=== PATIENT | male | born 1965 | race Caucasian/White ===

== ENCOUNTER 2016-05-21 10:24 | Inpatient (IN) | payer OTHER ==
[2016-05-21 11:13] LABS: BASO% 0.1 % (0.0-0.8); HEMOGLOBIN 14.2 g/dL (14.0-18.0); IMM GRAN# 0.39 X1000 (0.0-0.04); IMM GRAN% 2.3 % (0.0-0.5); LYMPH# 0.63 X1000 (1.2-3.4); LYMPH% 3.7 % (20.5-51.1); MANUAL DIFF NEEDED? NO; MCH 33.3 PG (27-31); MCHC 35.5 g/dL (33-37); MCV 93.7 FL (81-99); MONO% 6.5 % (1.7-9.3); MPV 11.4 FL (7.4-10.4); NEUT% 87.4 % (42.2-75.2); PLT 187 X1000 (130-400); RBC 4.27 XMIL (4.7-6.1)
[2016-05-21] MEDS ORDERED: NS 2,000 ML ONE (11:19)
[2016-05-21] MEDS ORDERED: DILAUDID IV ONE (11:28)
[2016-05-21] MEDS ORDERED: ZOFRAN IV ONE (11:28)
--- NOTE | 2016-05-21 11:28 | ED EKG INTERP ---
EKG Interpretation - EKG Time of EKG reading by physician:: 10:42 EKG Read and Signed by:: Valentin Montes EKG Interpretation (*Must complete 3 of following elements*): Abnormal Rate: 144 (ST and T wave abnormality, consider lateral ischemia) Rhythm: sinus tachycardia <Majo Gross - Last Filed: 05/21/16 11:24> - EKG Comments: Additional note: talked to Dr Conrad hospitalist. Elevated creatinine <Kendra Lubin - Last Filed: 05/21/16 13:35> Attestation - Scribe Verification/Attestation Scribe:: Majo Gross Acting as Scribe for:: Valentin Montes Scribe documention review:: This chart was documented by a scribe and accurately reflects the service the provider performed and the decisions made by the provider. <Majo Gross - Last Filed: 05/21/16 11:24> Physician Attestation
[2016-05-21 11:29] LABS: ALBUMIN 3.3 g/dL (3.5-5.0); POTASSIUM 3.2 mmol/L (3.5-5.1); TOTAL BILIRUBIN 2.24 mg/dL (0.20-1.00); TOTAL PROTEIN 6.8 g/dL (6.3-8.3)
[2016-05-21] MEDS ORDERED: NS 1,000 ML IV ONE ×4 (11:29→13:59)
--- NOTE | 2016-05-21 12:09 | PROVIDER DOCUMENTATION ---
HPI-Abdominal Pain/GI Problem - General Chief Complaint: Abdominal Pain Stated Complaint: SENT FOR FURTHER EVAL Time Seen by Provider: 05/21/16 11:17 Allergies/Adverse Reactions: Patient Allergies Allergy/AdvReac Type Severity Reaction Status Date / Time No Known Allergies Allergy Verified 05/21/16 10:58 Home Medications: Home Medication List Medication Instructions Recorded Confirmed Last Taken Type Aspirin 81 mg PO DAILY 01/27/13 05/21/16 3 Days Ago History Clonazepam 1 mg PO BID 01/27/13 05/21/16 05/21/16 History Fenofibrate 160 mg PO DAILY 01/27/13 05/21/16 05/21/16 History Levothyroxine [Synthroid] 100 mcg PO DAILY 01/27/13 05/21/16 05/21/16 History Losartan Potassium 100 mg PO DAILY 01/27/13 05/21/16 1 Day Ago History Olanzapine [Olanzapine Odt] 10 mg PO QHS 01/27/13 05/21/16 1 Day Ago History Omeprazole 40 mg PO DAILY 01/27/13 05/21/16 1 Day Ago History Ranitidine HCl 75 mg PO DAILY 01/27/13 05/21/16 1 Day Ago History Simvastatin 40 mg PO QHS 01/27/13 05/21/16 3 Days Ago History Hydrochlorothiazide 25 mg PO DAILY 05/21/16 05/21/16 05/21/16 History Metoprolol Succinate E.r. [Toprol 25 mg PO DAILY 05/21/16 05/21/16 05/21/16 History Xl] Trospium [Sanctura] 20 mg PO BID 05/21/16 05/21/16 05/21/16 History - History of Present Illness-ABD Nature of Presenting Problems: A 51 y/o M presented for evaluation of right sided abdominal pain started few days ago, was seen at office and US showed possible slugde in gall bladder, his pain is getting worse associated with nausea, pt is poor historian, no radiation of pain no prior surgeris on abdomen, on presentation pt in mild distress due to pain Abdominal Pain Onset Location: reports: RUQ, RLQ, epigastric Pain Radiation: reports: no radiation Quality of Pain: reports: aching, pressure Severity in ED: reports: moderate Onset/Duration: reports: unsure Timing: reports: still present Activities at Onset: reports: none Exposure to sick contacts?: No Modifying Factors: improves with: nothing Associated Symptoms: reports: nausea Last BM: unsure Dark Stools Present?: reports: none noticed Rectal Bleeding: reports: none Rectal Pain: reports: none Emesis Description: reports: none Bruising or Bleeding Gums?: No Similar Symptoms Previously?: Yes Recently seen or treated by another doctor?: Yes Review of Systems - Adult - REVIEW OF SYSTEMS - ADULT Constitutional: reports: no symptoms reported Eyes: reports: no symptoms reported Ears, Nose, Mouth & Throat: reports: no symptoms reported Cardiovascular: reports: no symptoms reported Respiratory: reports: no symptoms reported Gastrointestinal: reports: no symptoms reported Genitourinary: reports: no symptoms reported Musculoskeletal: reports: no symptoms reported Integumentary: reports: no symptoms reported Neurological: reports: no symptoms reported Psychiatric: reports: no symptoms reported Endocrine: reports: no symptoms reported Hematologic/Lymphatic: reports: no symptoms reported Allergic/Immunologic: reports: no symptoms reported All Other Systems: Reviewed and Negative Past History - Adult - PAST MEDICAL HISTORY-ADULT Review of Records: reports: Old Records Reviewed, Nursing Assessment Review, Medications Reviewed, Social history reviewed & non-contributory. Major Childhood Illnesses: reports: denies history Cardiovascular: reports: denies history Respiratory: reports: denies history Gastrointestinal: reports: denies history Obstetrical/Gynecological: reports: denies history Genitourinary: reports: denies history Musculoskeletal: reports: denies history Neurological: reports: denies history Endocrine/Immune: reports: denies history Other Conditions: reports: denies history - FAMILY HISTORY Family History: reviewed, not pertinent Physical Exam-General - PHYSICAL EXAM-ADULT Initial Vital Signs Reviewed: Yes - CONSTITUTIONAL General Appearance: appears well, mild distress - EYES Eyes: PERRL/EOMI, pink conjunctivae - HEAD, EARS, NOSE, MOUTH & THROAT HENMT: normocephalic/atraumatic, moist mucous membranes - NECK Neck: non-tender, full range of motion - RESPIRATORY Respiratory: chest non-tender, lungs clear, normal breath sounds - CARDIOVASCULAR Cardiovascular: normal peripheral pulses, tachycardia - GASTROINTESTINAL (ABDOMEN) Abdominal Exam: normal bowel sounds, no organomegaly, guarding, tenderness, Reyes's sign. 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, grossly normal - PSYCHIATRIC Psych/Mental Status: normal mood/affect, normal thought content Progress - PLAN OF CARE/RESULTS Progress/Plan/Lab Results: Laboratory Tests 05/21/16 05/21/16 10:50 10:50 WBC 16.98 H RBC 4.27 L Hgb 14.2 Hct 40.0 L MCV 93.7 MCH 33.3 H MCHC 35.5 RDW Std Deviation 12.4 Plt Count 187 MPV 11.4 H Immature Gran % (Auto) 2.3 H Neut % (Auto) 87.4 H Lymph % (Auto) 3.7 L [place] % (Auto) 6.5 Eos % (Auto) 0.0 Baso % (Auto) 0.1 Immature Gran # (Auto) 0.39 H Neut # (Auto) 14.84 H Lymph # (Auto) 0.63 L [place] # (Auto) 1.10 H Eos # (Auto) 0.00 Baso # (Auto) 0.02 Sodium 137 Potassium 3.2 L Chloride 92 L Carbon Dioxide 18 L Anion Gap 27 BUN 17 Creatinine 2.5 H Estimated GFR/1.73 m2 27 BUN/Creatinine Ratio 7 Glucose 133 H Calculated Osmolality 277 Calcium 9.0 Total Bilirubin 2.24 H AST 57 H ALT 23 Alkaline Phosphatase 185 H Total Protein 6.8 Albumin 3.3 L Globulin 3.5 Albumin/Globulin Ratio 0.9 Amylase 22 Lipase 18 Orders Category Date Time Status Saline Loc DIRECTED Care 05/21/16 10:55 Active Saline Loc DIRECTED Care 05/21/16 11:26 Active NPO Diet 05/21/16 10:55 Completed NPO Diet 05/21/16 11:26 Active ABDOMEN/PELVIS W/O CONTRAST [CT] Stat Exams 05/21/16 11:27 Completed AMYLASE [CHEM] Stat Lab 05/21/16 10:50 Completed BLOOD CULTURE [BLDCUL] Stat Lab 05/21/16 11:43 Received CBC WITH ELECTRONIC DIFF [HEME] Stat Lab 05/21/16 10:50 Completed COMPREHENSIVE METABOLIC PANEL [CHEM] Stat Lab 05/21/16 10:50 Completed LACTATE, PLASMA [CHEM] Stat Lab 05/21/16 11:29 Ordered LIPASE [CHEM] Stat Lab 05/21/16 10:50 Completed URINALYSIS W/POSS RFLX CULT [URINALYSIS] Stat Lab 05/21/16 10:55 Uncollected URINALYSIS W/POSS RFLX CULT [URINALYSIS] Stat Lab 05/21/16 11:26 Uncollected 0.9% Sodium Chloride Inj [Ns] 1,000 ml Med 05/21/16 11:19 Discontinued .ROUTE As Directed 0.9% Sodium Chloride Inj [Ns] 1,000 ml Med 05/21/16 11:29 Discontinued IV 999 mls/hr 0.9% Sodium Chloride Inj [Ns] 1,000 ml Med 05/21/16 11:30 Discontinued IV 999 mls/hr Hydromorphone [Dilaudid] Med 05/21/16 11:28 Discontinued 1 mg IV NOW ONE Ondansetron [Zofran] Med 05/21/16 11:28 Discontinued 4 mg IV NOW ONE Piperacil/Tazobact 3.375 gm/Ns [Zosyn 3.375 gm/Ns] 50 Med 05/21/16 13:16 Active ml IV NOW Vancomycin 1 gm/Ns 250 ml Med 05/21/16 13:19 Active IV NOW Vital Signs Temp Pulse Resp BP Pulse Ox 05/21/16 12:46 99.8 F H 05/21/16 12:41 126 H 31 H 97/57 90 L 05/21/16 12:11 125 H 16 96/63 94 L 05/21/16 11:31 135 H 24 96/64 95 05/21/16 11:11 135 H 24 102/54 95 05/21/16 10:30 99.2 F 153 H 22 153/128 95 No Known Allergies Allergy (Verified 05/21/16 10:58) Aspirin 81 mg PO DAILY 01/27/13 Clonazepam 1 mg PO BID 01/27/13 Fenofibrate 160 mg PO DAILY 01/27/13 Levothyroxine [Synthroid] 100 mcg PO DAILY 01/27/13 Losartan Potassium 100 mg PO DAILY 01/27/13 Olanzapine [Olanzapine Odt] 10 mg PO QHS 01/27/13 Omeprazole 40 mg PO DAILY 01/27/13 Ranitidine HCl 75 mg PO DAILY 01/27/13 Simvastatin 40 mg PO QHS 01/27/13 Hydrochlorothiazide 25 mg PO DAILY 05/21/16 Metoprolol Succinate E.r. [Toprol Xl] 25 mg PO DAILY 05/21/16 Trospium [Sanctura] 20 mg PO BID 05/21/16 Dietary Diet NPO Start Sat May 21 1126 Laboratory 05/21/16 05/21/16 10:50 10:50 WBC 16.98 H RBC 4.27 L Hgb 14.2 Hct 40.0 L MCV 93.7 MCH 33.3 H MCHC 35.5 RDW Std Deviation 12.4 Plt Count 187 MPV 11.4 H Immature Gran % (Auto) 2.3 H Neut % (Auto) 87.4 H Lymph % (Auto) 3.7 L [place] % (Auto) 6.5 Eos % (Auto) 0.0 Baso % (Auto) 0.1 Immature Gran # (Auto) 0.39 H Neut # (Auto) 14.84 H Lymph # (Auto) 0.63 L [place] # (Auto) 1.10 H Eos # (Auto) 0.00 Baso # (Auto) 0.02 Sodium 137 Potassium 3.2 L Chloride 92 L Carbon Dioxide 18 L Anion Gap 27 BUN 17 Creatinine 2.5 H Estimated GFR/1.73 m2 27 BUN/Creatinine Ratio 7 Glucose 133 H Calculated Osmolality 277 Calcium 9.0 Total Bilirubin 2.24 H AST 57 H ALT 23 Alkaline Phosphatase 185 H Total Protein 6.8 Albumin 3.3 L Globulin 3.5 Albumin/Globulin Ratio 0.9 Amylase 22 Lipase 18 - REASSESSMENT Reassessment #1 Status: unchanged - EKG 1 EKG Interpretation (*Must complete 3 of following elements*): Abnormal (sinus tachycardia no acute changes no STEMI) - CT/MRI 2 CT Study: Abdomen Impression: See EMR Report CT Results: cholecsytitis no gall stone sbut fluid around gall bladder duodenitis - CONSULTS/PCP/HOSPITALIST Notification #2 Consult: Dr Chawla surgery Time Discussed: 13:27 Consult Disposition: Admit Departure - Departure Time of Disposition Order: 13:27 DIAGNOSIS: Cholecystitis Abdominal pain Qualifiers: Abdominal location: right lower quadrant Qualified Code(s): R10.31 - Right lower quadrant pain Sepsis Qualifiers: Sepsis type: sepsis due to unspecified organism Qualified Code(s): A41.9 - Sepsis, unspecified organism Disposition: ADMITTED INPATIENT 09 Certified Medical Emergency: Emergent Condition: Stable - Critical Care Note Comments: A 51 y/o M who presented meeting sepsis criteria started on IV fluids at 30 ml/ kg had elevated WBC and CT scan findings as above, started on ABX after surgical consultation, pt will be admitted to hospitalist service
--- NOTE | 2016-05-21 13:02 | Diag Imaging Result Document ---
PROCEDURE NAME: ABDOMEN/PELVIS W/O CONTRAST - 05/21/2016 CT UROGRAM WITHOUT CONTRAST: FINDINGS: There is bibasilar atelectasis. The possibility of pneumonia in the right lower lobe cannot be entirely excluded. The stomach is distended. There is inflammatory change surrounding the second portion of the duodenum. The pancreas is fairly fatty replaced. There is inflammation surrounding the gallbladder. No definite calcified stones are present. There is no evidence of nephrolithiasis or hydronephrosis. The appendix is normal in appearance. There is diverticulosis in the sigmoid colon. There is a small fluid collection subadjacent to the gallbladder. There is a diverticulum arising from the second portion of the duodenum. IMPRESSION: 1. Basilar atelectasis. 2. Possibility of duodenitis or peptic ulcer disease cannot be excluded. 3. Cholecystitis.
[2016-05-21] MEDS ORDERED: ZOSYN 3.375 GM/NS 50 ML IV ONE (13:16)
[2016-05-21] MEDS ORDERED: VANCOMYCIN 1 GM/NS 250 ML IV ONE (13:19)
[2016-05-21 13:29] LABS: URINE CULTURE NEEDED? NO; URINE SOURCE CATH
[2016-05-21 13:36] LABS: BILIRUBIN URINE SMALL (NEGATIVE); BLOOD URINE NEGATIVE (NEGATIVE); COLOR YELLOW; GLUCOSE URINE NEGATIVE (NEGATIVE); LEUKOCYTES URINE NEGATIVE (NEGATIVE); NITRITE URINE NEGATIVE (NEGATIVE); PROTEIN URINE 70 mg/dL (NEGATIVE); SP GRAVITY URINE 1.019; TURBIDITY URINE HAZY (CLEAR); UROBILINOGEN URINE NORMAL (NORMAL)
[2016-05-21 13:39] LABS: URINE MICRO REVIEW NEEDED? YES
[2016-05-21 13:40] LABS: UR EPITHELIAL CELLS <10 /HPF (<10); URINE BACTERIA NEGATIVE /HPF; URINE RBC <10 /HPF (<10); URINE WBC <10 /HPF (<10)
[2016-05-21 13:49] LABS: URINE CASTS NONE SEEN; URINE CRYSTALS NONE SEEN; URINE SMALL ROUND CELLS NONE SEEN
[2016-05-21] MEDS ORDERED: LEVOPHED 8 MG in D5 1/2 NS 250 ML IV SCH (14:00)
[2016-05-21] MEDS ORDERED: PROTONIX 80 MG in NS 80 ML IV ONE (14:09)
[2016-05-21] MEDS ORDERED: POTASSIUM CHLORIDE 40 MEQ/SWI 100 ML IV ONE (14:13)
[2016-05-21] MEDS ORDERED: ZOSYN 2.25 GM/NS 50 ML IV SCH (14:15)
--- NOTE | 2016-05-21 14:39 | CONSULTATION ---
DATE OF CONSULTATION: 05/21/2016 REQUESTING PHYSICIAN: Dr. Oneill on the hospitalist service. CONSULT CONCERNING: Abdominal pain. HISTORY OF PRESENT ILLNESS: A 51-year-old male presenting with right-sided and right flank abdominal pain starting several days prior to presentation. He had been seen in his primary care physician's office and had an ultrasound that showed possible sludge in the gallbladder. His pain had continued to get worse and came to emergency department. The patient is a poor historian. Cannot give much more details. Right now said he is not hurting as much but when the pain was happening on the right side he described as moderate in intensity and been increasing over last couple days. Nothing seemed to make it better. Nothing seemed to made it worse. He did not seem to notice a precipitating event prior to the presentation of this pain. He was evaluated in emergency department, had a CT scan that showed a duodenitis, some fluid around the duodenum and some fluid around the gallbladder. There is a concern that this might be a contained perforation of a duodenal ulcer. His blood pressure has been labile, it is currently in the 80s. His heart rates in the 120s. He is presenting in a septic like picture. He is being resuscitated currently by the hospitalist service and will be admitted to the ICU. I was asked to weigh an opinion. Again the patient right now is not reporting any abdominal pain. PAST MEDICAL HISTORY: Includes hyperlipidemia, hypothyroidism, hypertension, peptic ulcer disease, reported schizophrenia. ALLERGIES: None. PAST SURGICAL HISTORY: The patient denies any kind of abdominal surgery. SOCIAL: Reviewed with the patient. No pertinent positives. FAMILY HISTORY: Reviewed with patient but noncontributory to this case. REVIEW OF SYSTEMS: A full 10 point review of systems obtained, negative as specified in HPI. PHYSICAL EXAM: Vital Signs: The patient is currently tachycardic in the 120s, blood pressure is 84/59, O2 saturations in the 90s, respiratory rate in the high 20s. General Exam: male looks stated age. Appears to be mild to moderate distress. HEENT: Normocephalic, atraumatic. Pupils equal, round, reactive to light. Mucous membranes moist. Oropharynx benign. Neck: Supple. Trachea midline. Cardiovascular: Regular rate and rhythm but with tachycardia noted. Lungs: Grossly clear. Abdomen: Soft, distended. No peritonitis at this time. No tenderness on exam at this time. He did have an exam by the ER physician. It did show some tenderness in the right upper quadrant but at this time he is not currently tender. Extremities: Moves all extremities well. Neurologic: Grossly intact. Skin: No signs of jaundice. Vascular: All extremities perfused. LABORATORY: White blood cell count 16.9, hematocrit 40, platelet count 187,000. Chemistry reviewed. Of note, patient's creatinine is 2.5, bilirubin is 2.2, AST 57, ALT 185, albumin 3.3, lipase 18. CT scan independently reviewed and reviewed over the phone with Dr. Townsend with radiology and results as noted above. ASSESSMENT AND PLAN: A 51-year-old male with sepsis with potential for contained perforation of duodenal ulcer. 1. Sepsis at this time being resuscitated by the hospitalist service. He is undergoing the sepsis workup. He has been started on antibiotics. He is going to be admitted to the ICU for continued resuscitation. Will follow along with him. 2. Possible duodenal contained perforation or ulcer. At this time the patient is septic. Given the radiographic imaging this is a high concern. I believe that his gallbladder may be reacting secondary to the whole inflammatory process and may not be the culprit of the problem for his septic like picture especially given his lack of abdominal pain. He is going to be started on antibiotics. Will also ask the hospitalist service to put him on proton pump inhibitor drip. I have discussed over the phone with Dr. Santana in gastroenterology. Once he is resuscitated may consider an EGD to evaluate further. Will continue to follow along with you. I appreciate the consult.
[2016-05-21] MEDS: POTASSIUM CHLORIDE 20 MEQ/SWI 100 ML IV SCH ×2 (14:44→17:01)
[2016-05-21] MEDS: PROTONIX 80 MG in NS 80 ML IV SCH (15:34)
[2016-05-21] MEDS ORDERED: SODIUM CHLORIDE 0.9% INJ PRN (15:51)
[2016-05-21] MEDS: NS 1,000 ML IV SCH (17:09)
--- NOTE | 2016-05-21 18:32 | HISTORY AND PHYSICAL ---
CHIEF COMPLAINT: Abdominal pain. HISTORY OF PRESENT ILLNESS: This is a 51-year-old male who presented to the emergency room complaining of several days of right-sided right flank abdominal pain. He was seen by his primary care physician earlier in the week. An ultrasound was done that the patient reports revealed possible sludge in the gallbladder. He stated that his pain has continued to worsen, therefore he presented to the emergency room. He is a poor historian and he can give no further details of what are mentioned above. He stated that the pain on his right side he could not describe the pain. He just stated that it hurt. Nothing made it better. Nothing made it worse. He had no accompanying symptoms. He had a CT scan in the emergency room that showed duodenitis with some fluid around the duodenum as well as around the gallbladder. On presentation he had blood pressure of 153/128 with a heart rate of 153, temperature was 99.2 degrees. Pressure slowly began to drop and on my evaluation patient's blood pressure was 80/54, he was on a 2nd L of fluid. He was in Trendelenburg. He was alert and oriented. He does appear septic and he is being resuscitated currently. He was evaluated by Dr. Chawla, General Surgery in the emergency room. At that time the patient had a nontender abdomen and was denying any abdominal pain. PAST MEDICAL HISTORY: Hyperlipidemia, hypothyroid, hypertension, peptic ulcer disease and reported schizophrenia. ALLERGIES: No known drug allergies. PAST SURGICAL HISTORY: He denies. HOME MEDICATIONS: Klonopin, Sanctura, Toprol-XL, hydrochlorothiazide, Synthroid, fenofibrate, aspirin, losartan, olanzapine, simvastatin, ranitidine and omeprazole. REVIEW OF SYSTEMS: A 14-point review of systems is discussed with patient with pertinent positives stated in the HPI. All others are negative. PHYSICAL EXAMINATION: GENERAL: This is a 51-year-old male who is in the emergency room is currently in Trendelenburg with a blood pressure of 80 over 50s, heart rate in the 120s to 130s who actually denies being in any distress. HEENT: Head is normocephalic, atraumatic. Pupils equal, round, react to light. EOMs are intact. Sclerae nonicteric. Mucous membranes are moist. NECK: Supple. Trachea midline. CARDIOVASCULAR: Regular rate and rhythm. Tachycardic, S1 and S2 are appreciated. PULMONARY: Lungs are clear with no increased work of breathing. Chest rises and falls symmetrically. GASTROINTESTINAL: Abdomen soft, is distended, nontender to exam with bowel sounds in all 4 quadrants. : [place] is patent with urine that is clear yellow. EXTREMITIES: No clubbing, cyanosis, or edema. Calves are nontender. Pulses are palpable although faint. DIAGNOSTICS: WBC is 16.9 with a hemoglobin of 14.2, hematocrit 40 and platelets of 187,000. Sodium is 137, potassium 3.2, BUN 17, creatinine 2.5 with a glucose of 133. Total bilirubin is 2.24 with AST of 57, ALT of 23 and alkaline phosphatase of 185. He does have a plasma lactate of 4.4 and this is after fluid resuscitation. Urinalysis is pending. Blood cultures are pending. CT scan of the abdomen and pelvis as stated above. ASSESSMENT AND PLAN: A 51-year-old male with sepsis and the potential for a contained perforated duodenal ulcer. PLAN: 1. Sepsis. The patient is being resuscitated at present. Levophed has been started. Antibiotic coverage of Zosyn as per GI and general surgery. Will admit to ICU. Continue with sepsis protocol. He will be placed on telemetry. 2. Hypotension as stated above. 3. Possible duodenal contained perforation or ulcer. At this time the patient is septic. He has been evaluated by general surgery who feels that the gallbladder may not be the culprit that this in fact may be secondary to the inflammatory process. He did speak to Dr. Santana, gastroenterology who feels that there is potential for perforation of a duodenal ulcer. Therefore the patient of course will be NPO. Will give Protonix bolus, start a Protonix drip, Zosyn for antibiotic coverage. He will be evaluated by Dr. Santana. 4. History of peptic ulcer disease aware. 5. Hypothyroid. 6. Schizophrenia aware. 7. Will identify and continue any home medications as appropriate via IV. Of course we will give Synthroid IV daily. Will trend daily labs. Further treatments pending hospital course. Dictated by JUAN Dhaliwal for Seamus Pham MD
[2016-05-21] MEDS: ZOSYN 2.25 GM/NS 50 ML IV SCH (19:35)
[2016-05-21] MEDS: TYLENOL PO PRN (21:32)
[2016-05-21] MEDS: ZYPREXA ZYDIS PO SCH (21:32)
[2016-05-21] MEDS: KLONOPIN PO SCH (21:33)
[2016-05-21] MEDS: MORPHINE IV PRN (22:59)
[2016-05-22] MEDS: PROTONIX 80 MG in NS 80 ML IV SCH ×3 (00:30→16:23)
[2016-05-22] MEDS: NS 1,000 ML IV SCH ×3 (01:30→16:22)
[2016-05-22] MEDS: ZOSYN 2.25 GM/NS 50 ML IV SCH ×4 (02:29→20:41)
[2016-05-22 06:24] LABS: HEMATOCRIT 32.4 % (42.0-52.0); HEMOGLOBIN 11.2 g/dL (14.0-18.0); MCH 33.1 PG (27-31); MCHC 34.6 g/dL (33-37); MCV 95.9 FL (81-99); MPV 11.9 FL (7.4-10.4); RBC 3.38 XMIL (4.7-6.1)
[2016-05-22 06:44] LABS: ALBUMIN 2.3 g/dL (3.5-5.0); MAGNESIUM 2.3 mg/dL (1.5-2.7); POTASSIUM 3.4 mmol/L (3.5-5.1); TOTAL BILIRUBIN 1.55 mg/dL (0.20-1.00); TOTAL PROTEIN 5.6 g/dL (6.3-8.3)
[2016-05-22] MEDS: SYNTHROID IV SCH (06:44)
--- NOTE | 2016-05-22 06:49 | PROGRESS NOTE ---
DATE: 05/22/2016 SUBJECTIVE: Patient reports no real significant pain. He had some episodes earlier, but no pain currently. Discussed with the nurse. No major issues reported overnight his vital signs have improved since admission. OBJECTIVE: Vital Signs: Patient's current temperature is 100.9, temperature max was 101.5. Current heart rate is 120, blood pressure 111/75. His Levophed is currently off. General Examination: No acute distress. Alert, interactive, male. Looks stated age. HEENT: Normocephalic atraumatic. Pupils are round, react to light. Mucous membranes moist. Oropharynx benign. Neck: Supple. Trachea midline. Cardiovascular: Mildly tachycardic. Lungs: Grossly clear. Abdomen: Protuberant, but soft. No real tenderness at this time. Extremities: Moves all extremities. Neurologic: Grossly intact. Skin: No signs of jaundice. Vascular: All extremities perfused. LABORATORY: Currently pending. ASSESSMENT AND PLAN: A 51-year-old male with duodenitis and possible cholecystitis with septic like picture. 1. Sepsis. At this time being managed by the hospitalist service. He is on broad-spectrum antibiotics. He did have a slightly elevated lactic acid, initially at 4.4, but has gone down to 3.8, his overall clinical status has seemed to improve with resuscitation. 2. Possible duodenal contained perforation or ulcer. At this time, patient essentially has a benign abdomen. Would likely need an esophagogastroduodenoscopy done to evaluate this area, once he is more stable. We will defer that to GI. Will continue to follow the patient with you.
[2016-05-22 07:29] LABS: CALCIUM 7.6 mg/dL (8.8-10.2)
--- NOTE | 2016-05-22 07:57 | CONSULTATION ---
DATE OF CONSULTATION: 05/21/2016 ADMITTING PHYSICIAN: Dr. Oneill. PRIMARY PHYSICIAN: Dr. Josh Geiger. REASON FOR CONSULTATION: Sepsis, and questionable peptic ulcer disease. HISTORY OF PRESENT ILLNESS: Mr. Naylor is a 51-year-old male, who was admitted today with symptoms of right-sided abdominal pain, going on for many weeks before presentation. He had seen his primary care doctor, who advised he take MiraLAX for 2 to 3 days. He took MiraLAX last night, and last night he had about 5 liquid bowel movements. He continued to feel worse with abdominal pain, and had an ultrasound, which showed sludge in the gallbladder at his primary care's office. Because of worsening symptoms over the weekend, he came to the hospital. A CT scan showed evidence of duodenitis, diverticulum in the duodenum, fluid around the duodenum , and some fluid around the gallbladder. There is a concern of a possible contained perforation of duodenal ulcer. The patient is taking aspirin 81 mg a day at home (has not taken it since last ). He takes PPIs at home for reflux disease. He denied any history of peptic ulcer disease. He has had previous EGDs done by Dr. Pulliam for dysphagia and reflux disease. PAST MEDICAL HISTORY: Hypertension, hypothyroidism, peptic ulcer disease reported, schizophrenia, gastric ulcer disease, gallbladder sludge. ALLERGIES: No known drug allergies. PAST SURGICAL HISTORY: Denies any history of abdominal surgery. SOCIAL HISTORY: He lives at home. He is currently disabled. He denies history of smoking, alcohol or illicit drugs. FAMILY HISTORY: No history of any colon cancer in the family or stomach ulcers in the family. Denies any fevers, rigors, chills at this moment, although, the patient did complain of feverish feeling at home. He was noted to be tachycardic, hypertensive, and a sepsis picture in the ER, was given IV fluids and transferred to the ICU. He does complain of coughing spells and some choking spells with food. He denies any genitourinary complaints or neurologic complaints. Denies any vomiting or passing blood in the stools. MEDICATIONS IN THE HOSPITAL: Ativan, norepinephrine drip, Protonix drip, potassium chloride, Zosyn, vancomycin 1 dose, levothyroxine, IV fluids 125 per hour. He is currently NPO. PHYSICAL EXAMINATION: Vital signs: Temperature 97.9, pulse rate of 117, respiratory rate 20, blood pressure of 92/64, sating 93% 2 L nasal cannula. Body weight of 233 pounds 7 ounces. BMI of 32.6 kg/m2. General Appearance: Moderately nourished, lying in bed, in no acute distress. HEENT: No pallor. No icterus. Pupils equal, react to light. Neck: Supple. Chest: Decreased air entry. Cardiac: Tachycardic. Abdomen: Mild discomfort in right upper quadrant. No rebound. No guarding. Bowel sounds are hypoactive. Mildly protuberant abdomen. Mild obesity. Extremities: No cyanosis, clubbing, or edema. Neurologic: Alert, awake, oriented. LABS: Hemoglobin and hematocrit is 14.2 and 40, white count of 16.98, platelet count of 187,000. MCV of 93.7. Sodium 137, potassium 3.2, chloride 92, bicarb 18, anion gap of 27 , BUN of 17, creatinine of 2.5, glucose of 133, calcium is 9, total bilirubin is 2.24. AST 57, ALT 23, alkaline phosphatase 185. Total protein 6.0, albumin of 3.3, amylase of 22, lipase of 18, lactate of 4.4. Urinalysis showing positive protein, trace ketones, small bilirubin. CT scan of the abdomen and pelvis, done on 05/21/2016, showed some bilateral atelectasis, possibly duodenitis or peptic ulcer disease cannot be excluded or cholecystitis. IMPRESSION AND PLAN: Cholecystitis, and possibility of duodenitis and ? contained duodenal ulcer/diverticulum. There is also evidence of diverticulum arising from second duodenum on the imaging. The patient is being treated with IV fluids, IV PPIs, IV antibiotics and he is NPO Dr. Chawla is on board. Patient's liver enzymes slightly high, consistent with a diagnosis of cholecystitis, sepsis or both. Once he is resuscitated, we will plan for an EGD. He does not have any signs of active GI bleeding, and he has been on PPIs and limited NSAIDs. Discussed with the patient, RN at bedside. All questions were answered. Further recommendations are pending hospital course. [facility]
[2016-05-22] MEDS ORDERED: POTASSIUM PHOSPHATE 30 MEQ in NS 250 ML IV ONE (08:10)
[2016-05-22] MEDS: KLONOPIN PO SCH ×2 (08:18→20:47)
--- NOTE | 2016-05-22 10:47 | PROGRESS NOTE ---
DATE: 05/22/2016 SUBJECTIVE: When I evaluated this patient he was sitting on the bed. He is not complaining of belly pain, just mild discomfort upon palpation. He is still distended. He was admitted yesterday for sepsis and he has been without pressors since 2 a.m. For now, we will continue with the same management. This patient has had today hypokalemia and hypophosphatemia. I will replace this with potassium phosphate. OBJECTIVE: Vital Signs: Temperature 97.8 degrees, pulse 106, respiratory rate 23, blood pressure 125/86, oxygen saturation 94% on 4 L of nasal cannula. HEENT: Head normocephalic. No trauma. PERRLA. Neck: Supple. No JVD. No masses. Central trachea. Cardiovascular: RRR. No murmurs. Chest: Clear to auscultation. No wheezing. No rales. Abdomen: Soft. It is distended. Mild generalized tenderness to palpation in all 4 quadrants. No rebound. Extremities: No edema. No clubbing. No cyanosis. Neurological: The patient is alert. He is oriented x3. No focal neurological deficits. LABORATORY: WBC 14.6, hemoglobin 11.2, hematocrit. 32.4, platelets 124,000. Sodium 140, potassium 3.4, chloride 104, bicarbonate 19, BUN 20, creatinine 1.6, glucose 136, calcium 7.6, phosphorus 0.8, magnesium 2.3. Total bilirubin 1.5, AST 48, ALT 19, alkaline phosphatase 105, albumin 2.3. ASSESSMENT AND PLAN: 1. Sepsis. At this point probably the source of any source of infection is coming from the abdomen. Surgery department and gastroenterology department are following this patient. Probably this patient will need an upper endoscopy to rule out a perforation and/or ulcer. This patient is getting better. The blood pressure has been stable. He has been without pressors since 2 a.m. today. We will continue with the same management and IV fluids. 2. Hypotension. As above. The blood pressure has been stable. 3. Possible duodenal contained perforation or ulcer. At this time the patient's blood pressure is stable. Gastroenterology department is following this patient. Probably this patient will need an upper endoscopy to rule out these conditions. We will wait for their recommendations. 4. Acute kidney injury. This is getting better. The creatinine decreased from. 2.5 to 1.6. I do not have previous records or hospitalization to compare. We will continue with the same management. 5. Hypokalemia. I will replace the potassium. 6. Hypophosphatemia. I will replace the phosphorus. He will get potassium phosphate. 7. History of peptic ulcer disease. Aware. 8. Hypothyroidism. Continue with the same management. He is on Synthroid. 9. Schizophrenia. Aware. CRITICAL CARE TIME: 35 minutes.
[2016-05-22] MEDS: TYLENOL PO PRN (14:29)
[2016-05-22] MEDS: LEVAQUIN 500 MG/D5W 100 ML IV SCH (18:02)
--- NOTE | 2016-05-22 19:53 | PROGRESS NOTE ---
DATE: 05/22/2016 SUBJECTIVE: Patient currently resting in bed. He complaints of abdominal pain in the right upper quadrant. His abdomen is feeling distended today.Vitals: Temperature of 99.5 degrees, pulse rate of 108, respiratory rate 26, blood pressure 152/89, saturating 92% on 4 L nasal cannula. General Appearance: Obese, lying in bed, in mild distress because of abdominal discomfort. HEENT: Pale conjunctivae. No icterus. Neck: Supple. Abdomen: Mild distention noted. Discomfort in the right upper quadrant. Bowel sounds are hypoactive. No guarding. Extremities: No cyanosis, clubbing. Neurologic: Alert, awake, and oriented. LABORATORY/DIAGNOSTICS: Hemoglobin and hematocrit 11.2, 32.4, white count of 14.67, platelet count of 124,000. Sodium 140, potassium 3.4, chloride 104, bicarb 99, anion gap 17, BUN of 20, creatinine 1.6, glucose of 136, calcium is 7.6, phosphorus 0.8, bilirubin is 1.55. AST 48, ALT 19, alkaline phosphatase was 105, total protein 5.6, albumin of 2.3, lactate of 3.8, lipase of 44. Urinalysis showing trace protein, trace ketones, and small bilirubin. IMPRESSION/PLAN: 1. Abdominal distention, abdominal pain, sepsis and gram-negative rods. Currently continuing IV antibiotics, IV fluids. We will double cover with antibiotics and add Levaquin as well and continue on Zosyn. 2. We will schedule for esophagogastroduodenoscopy tomorrow morning if the patient is hemodynamically stable. 3. Cholecystitis. Dr. Chawla is on board. We will continue to watch the liver enzymes. 4. He has continued to be nothing per oral per the primary team for now. 5. The risks, benefits, indications and alternatives of esophagogastroduodenoscopy were explained to the patient and all questions were answered.
[2016-05-22] MEDS: ZYPREXA ZYDIS PO SCH (20:47)
[2016-05-23] MEDS: ZOSYN 2.25 GM/NS 50 ML IV SCH ×4 (02:05→20:57)
[2016-05-23] MEDS: PROTONIX 80 MG in NS 80 ML IV SCH ×3 (02:06→21:56)
[2016-05-23] MEDS: NS 1,000 ML IV SCH ×3 (02:06→12:36)
[2016-05-23 06:04] LABS: MANUAL DIFF NEEDED? NO
[2016-05-23 06:29] LABS: BASO% 0.1 % (0.0-0.8); EOS# 0.09 X1000 (0.0-0.7); EOS% 0.7 % (0.0-10.0); HEMOGLOBIN 11.5 g/dL (14.0-18.0); IMM GRAN# 0.14 X1000 (0.0-0.04); IMM GRAN% 1.1 % (0.0-0.5); LYMPH# 1.13 X1000 (1.2-3.4); LYMPH% 9.1 % (20.5-51.1); MCH 33.6 PG (27-31); MCHC 35.9 g/dL (33-37); MCV 93.6 FL (81-99); MONO# 1.14 X1000 (0.11-0.59); MONO% 9.2 % (1.7-9.3); MPV 11.4 FL (7.4-10.4); NEUT% 79.8 % (42.2-75.2); PLT 159 X1000 (130-400); RBC 3.42 XMIL (4.7-6.1)
[2016-05-23] MEDS: SYNTHROID IV SCH (06:32)
--- NOTE | 2016-05-23 06:39 | PROGRESS NOTE ---
DATE: 05/23/2016 SUBJECTIVE: Patient had more increased distention yesterday. Had a KUB that showed what appeared to be a gastric outlet obstruction. He had an NG tube placed that has returned bile. The patient is resting comfortably right now. He is currently not on any pressors. OBJECTIVE: Vital Signs: The patient's current temperature is 99.3, his pulse is 101, blood pressure 150/100, O2 saturation 96%. General Examination: Resting comfortably. No acute distress. HEENT: Normocephalic and atraumatic. Pupils equal, round, and react to light. Mucous membranes moist. Oropharynx benign. NG tube in place with bilious output. Trachea midline. Cardiovascular: Mildly tachycardic. Lungs: Grossly clear. Abdomen: Softer and less distended than yesterday but still distended. Extremities: Moves all extremities. Neurologic: Grossly intact. Skin: No signs of jaundice. Vascular: All extremities perfused. Laboratory: Currently pending. Radiographs: Imaging reviewed. His post NG tube placement x-ray looks improved compared to his KUB from last night as far as gastric distention is concerned. ASSESSMENT AND PLAN: A 51-year-old, male with duodenitis and possible duodenal obstruction, and possible cholecystitis with a septic like picture. 1. Sepsis. At this time, being managed by the hospitalist service. He was on antibiotics. He has gram-negative rods in his blood that have not speciated. We will continue with antibiotics as per protocol. 2. Possible duodenal obstruction versus duodenitis. At this time, nasogastric tube has been placed. His x-ray appeared to be a gastric outlet obstruction. He has got bile coming out of his nasogastric tube, would suggest that if he does have a duodenal obstruction, it is past the 2nd portion of the duodenum. I discussed with Dr. Das over the phone and in person, the potential for an esophagogastroduodenoscopy to evaluate the point of obstruction better. If they can not identify anything by esophagogastroduodenoscopy, he may need upper gastrointestinal series. We will continue to follow with you on this tissue. 3. Cholecystitis. At this time, I think it is secondary to the other processes occurring but we will follow closely. [facility]
[2016-05-23 07:19] LABS: AGAP 13; ALBUMIN 2.4 g/dL (3.5-5.0); ALKALINE PHOSPHATASE 108 U/L (32-122); BUN 18 mg/dL (8-22); CALCIUM 7.5 mg/dL (8.8-10.2); CHLORIDE 107 mmol/L (98-107); COSMO 285; GOT 49 U/L (10-34); GPT 21 U/L (10-44); POTASSIUM 3.2 mmol/L (3.5-5.1); SODIUM 142 mmol/L (136-145); TCO2 22 mmol/L (25-35); TOTAL BILIRUBIN 1.38 mg/dL (0.20-1.00); TOTAL PROTEIN 5.6 g/dL (6.3-8.3)
--- NOTE | 2016-05-23 08:58 | Diag Imaging Result Document ---
PROCEDURE NAME: KUB ABDOMEN - 05/23/2016 X-RAY ABDOMEN, 05/23/2016: COMPARISON: 05/22/2016. FINDINGS: There is a new nasogastric tube with the tip in the stomach. The stomach has been decompressed. No abnormally distended bowel loops. No evidence of free air. IMPRESSION: No acute disease.
--- NOTE | 2016-05-23 09:00 | EKG Report ---
Test Performed on : 05/21/2016 10:42:12 AM Test Reason : No Order in eBIZ.mobility Blood Pressure : / mmHG Vent. Rate : 144 BPM Atrial Rate : 144 BPM P-R Int : 112 ms QRS Dur : 062 ms QT Int : 352 ms P-R-T Axes : 043 023 063 degrees QTc Int : [address] & T wave abnormality, consider lateral ischemia Abnormal ECG No previous ECGs available Unconfirmed Result
[2016-05-23] MEDS ORDERED: MYLICON DROPS (DOSE) MISC ONE (09:36)
--- NOTE | 2016-05-23 09:55 | PROGRESS NOTE ---
DATE: 05/23/2016 SUBJECTIVE: This patient is laying on the bed. He is alert and oriented x3. He is not complaining of pain at this moment. Probably he will go for an endoscopy today. We have a positive culture that showed E. coli that is sensitive to Zosyn and levofloxacin. I will continue with the same antibiotics for now. OBJECTIVE: Vital Signs: Temperature 98.5 degrees, pulse 110, respiratory rate 29, blood pressure 150/95 on the monitor, and oxygen saturation 95% on 4 L of nasal cannula. HEENT: Head normocephalic. No trauma. PERRLA. Neck: Supple. No JVD. No masses. Central trachea. Cardiovascular: RRR. No murmurs. Tachycardic. Chest: Clear to auscultation. No wheezing. No rales. Abdomen: Soft. Mildly to moderately distended. No signs of peritoneal irritation. Mild generalized tenderness to palpation in all 4 quadrants. No rebound. Extremities: No edema. No clubbing. No cyanosis. Neurological: The patient is alert and oriented x3. No focal deficits. LABORATORY: WBC is 12.4, hemoglobin 11.5, hematocrit 32 platelets 159,000. Sodium 142, potassium 3.2, chloride 107, bicarbonate 22, BUN 18, creatinine 1, glucose 96, calcium 7.5, albumin 2.4. ASSESSMENT AND PLAN: 1. Sepsis. This condition has resolved. We have a positive culture that showed E. coli bacteremia that is sensitive to Zosyn and levofloxacin. I will continue with the same medications. 2. Possible duodenal contained perforation/ulcer/bowel obstruction at the level of the duodenum. This patient has an NG tube at this moment and probably this patient will get an upper endoscopy today to have a better picture of what is going on. Gastroenterology and surgery department are following this patient. 3. Acute kidney injury. Resolved. Continue with the IV fluids. 4. Hypokalemia. I will replace the potassium today. 5. Hypophosphatemia. I will monitor the phosphorus. Yesterday he received phosphorus IV. 6. History of peptic ulcer disease. Aware. 7. Hypothyroidism. Continue with the same management. He is on Synthroid. 8. Schizophrenia. Aware. CRITICAL CARE TIME: 40 minutes.
[2016-05-23] MEDS ORDERED: NS IV ONE (10:00)
[2016-05-23] MEDS ORDERED: POTASSIUM PHOSPHATE IV ONE (10:00)
--- NOTE | 2016-05-23 10:05 | Diag Imaging Result Document ---
PROCEDURE NAME: CHEST-PORTABLE - 05/22/2016 PORTABLE CHEST X-RAY, 05/22/2016: COMPARISON: 10/27/2015. FINDINGS: There is a nasogastric tube with the tip in the stomach. IMPRESSION: Nasogastric tube with the tip in the stomach.
--- NOTE | 2016-05-23 10:08 | Diag Imaging Result Document ---
PROCEDURE NAME: KUPratima ABDOMEN - 05/22/2016 X-RAY ABDOMEN, 05/22/2016: COMPARISON: 05/19/2016. FINDINGS: There is extremely severe gas distention of the stomach. No free air. No abnormally dilated small-bowel loops. IMPRESSION: Extremely severe gas distention of the stomach.
[2016-05-23] MEDS ORDERED: DIPRIVAN 1% ONE (10:17)
[2016-05-23] MEDS ORDERED: LR 1,000 ML ONE (10:38)
[2016-05-23] MEDS ORDERED: XYLOCAINE-MPF 2% ONE (10:38)
[2016-05-23] MEDS ORDERED: ANESTHESIA PB SET 88 IN 5742 ONE (10:38)
[2016-05-23] MEDS ORDERED: EXTENSION SET 32 IN 4522 ONE (10:38)
[2016-05-23] MEDS: CLINIMIX E 4.25%-5% SOLUTION 1,000 ML IV SCH (12:18)
--- NOTE | 2016-05-23 12:52 | OPERATIVE NOTE ---
PROCEDURE DATE: 05/23/2016 PRIMARY CARE DOCTOR: Josh Geiger MD ADMITTING DOCTOR: Hospitalist. PROCEDURE PERFORMED: Esophagogastroduodenoscopy. PREOPERATIVE DIAGNOSES: 1. Abnormal CT scan showing possible duodenitis and question of ulcer in the duodenum. 2. Cholecystitis. 3. Gram-negative rods in the blood, on antibiotics for the last 48 hours. 4. History of reflux disease. 5. Anemia. POSTOPERATIVE DIAGNOSES: 1. Erosive esophagitis in the mid and distal esophagus, Story grade 3. 2. Z-line visualized. 3. Evidence of bile in the stomach, which was suctioned out. 4. Normal fundus, cardia, and incisura on retroflexion in the stomach. 5. Mild gastritis in the gastric antrum. 6. Normal duodenal bulb and 2nd and 3rd portions of the duodenum. There was evidence of a diverticulum in the 2nd portion of the duodenum. There was no evidence of any ulceration or erythema noted in the duodenal bulb and 2nd and 3rd portions of the duodenum. There was no evidence of any gastric outlet obstruction. ESTIMATED BLOOD LOSS: None. COMPLICATIONS: None. ANESTHESIA: Monitored anesthesia care. SPECIMENS: None. DESCRIPTION OF PROCEDURE: After informed consent from the patient, explaining the risks, benefits, indications, and alternatives, the patient was prepared for EGD. The risks of infection, including bleeding, pain, trauma to the surrounding structures, perforation, and were explained to the patient, among others, and he acknowledged understanding and agreed to proceed with the procedure. He was brought to the OR and turned into the left lateral position. A bite block was placed. After adequate monitored anesthesia care the upper scope was introduced and advanced all the way to the 3rd portion of the duodenum. The esophagus was normal in the proximal 1/3. The distal and middle 1/3 of the esophagus showed evidence of erythema, friability, and superficial erosions involving more than 30% of the surface area. This is a consistent with LA grade 3 esophagitis. The Z-line was visualized. The scope was advanced into the stomach. There was no evidence of bile. The stomach was suctioned out. There was evidence of mild erythema in the body and antrum, suggesting mild gastritis. Retroflexion revealed normal fundus, cardia, and incisura. The scope was advanced into the duodenum, which showed normal duodenal bulb and 2nd and 3rd portions of the duodenum. There was no evidence of any gastric obstruction. There was no evidence of any visible ulceration in the duodenal bulb and 2nd and 3rd portions. There was evidence of diverticulum in the 2nd portion which did not appear to be inflamed. The scope was withdrawn into the stomach. Air was aspirated as the scope was withdrawn. The patient tolerated the procedure and is currently being monitored in the OR in fair condition. Dr. Chawla was called and he saw the whole procedure. The above was discussed with the patient and Dr. Chawla. RECOMMENDATIONS: 1. The patient will be on antibiotics per the primary team. 2. Continue IV fluids. 3. The patient will be started on CLINIMIx for nutrition support. The patient will need upper GI series, per Surgery request. 4. Dr. Chawla is planning to take the patient to the OR for cholecystectomy once he is hemodynamically stable. 5. We will follow closely. 6. We will continue Protonix and switch it to IV b.i.d. for now. 7. Further recommendations to follow pending hospital course.
[2016-05-23] MEDS: KLONOPIN PO SCH ×2 (16:18→21:55)
[2016-05-23] MEDS: LEVAQUIN 500 MG/D5W 100 ML IV SCH (17:28)
[2016-05-23] MEDS: ZYPREXA ZYDIS PO SCH (21:59)
[2016-05-24 02:17] LABS: ALLEN TEST YES; BE -1.7 mmoll (-3.0-3.0); BLOOD TYPE ARTERIAL; DRAW SITE R RADIAL; METHB 1.8 % (0.0-1.5); PCO2(98.6) 33 mmHg (35-45); PO2(98.6) 51 mmHg (60-100); SAMPLE BLOOD; SAO2 92.3 % (95.0-100.0); pH(98.6) 7.43 (7.35-7.45)
[2016-05-24 02:19] LABS: MODALITY VENTIMASK
[2016-05-24] MEDS: ZOSYN 2.25 GM/NS 50 ML IV SCH ×4 (02:22→19:44)
[2016-05-24] MEDS: CLINIMIX E 4.25%-5% SOLUTION 1,000 ML IV SCH ×2 (02:22→17:45)
[2016-05-24] MEDS ORDERED: LOPRESSOR IV ONE (04:02)
[2016-05-24] MEDS: NS 1,000 ML IV SCH ×4 (04:34→21:56)
[2016-05-24 06:10] LABS: MANUAL DIFF NEEDED? NO
[2016-05-24 06:18] LABS: BASO% 0.3 % (0.0-0.8); EOS# 0.06 X1000 (0.0-0.7); EOS% 0.6 % (0.0-10.0); HEMATOCRIT 31.8 % (42.0-52.0); HEMOGLOBIN 10.8 g/dL (14.0-18.0); IMM GRAN# 0.19 X1000 (0.0-0.04); IMM GRAN% 1.8 % (0.0-0.5); LYMPH# 1.22 X1000 (1.2-3.4); LYMPH% 11.8 % (20.5-51.1); MCH 32.1 PG (27-31); MCV 94.6 FL (81-99); MONO# 1.03 X1000 (0.11-0.59); MONO% 9.9 % (1.7-9.3); MPV 11.3 FL (7.4-10.4); NEUT% 75.6 % (42.2-75.2); PLT 194 X1000 (130-400); RBC 3.36 XMIL (4.7-6.1)
[2016-05-24 06:30] LABS: AGAP 11; BUN 18 mg/dL (8-22); CALCIUM 7.5 mg/dL (8.8-10.2); CHLORIDE 112 mmol/L (98-107); COSMO 290; POTASSIUM 3.6 mmol/L (3.5-5.1); SODIUM 144 mmol/L (136-145); TCO2 21 mmol/L (25-35)
[2016-05-24] MEDS: SYNTHROID IV SCH (06:36)
--- NOTE | 2016-05-24 07:42 | Diag Imaging Result Document ---
PROCEDURE NAME: CHEST-PORTABLE - 05/24/2016 PORTABLE CHEST X-RAY: COMPARISON: 05/22/2016. FINDINGS: The nasogastric tube has been removed. Lung volumes are critically low with streaky bilateral atelectasis. Heart size is top normal. IMPRESSION: Critically low lung volumes. Nondiagnostic.
--- NOTE | 2016-05-24 07:44 | Diag Imaging Result Document ---
PROCEDURE NAME: HEAD W/O CONTRAST - 05/24/2016 CT HEAD WITHOUT CONTRAST: A dose-reduction protocol was used. COMPARISON: No comparison exam. FINDINGS: There is no evidence of hemorrhage, mass effect, midline shift, or hydrocephalus. There is no evidence of infarct although acute infarcts may not be immediately visible. Visualized portions of paranasal sinuses appear essentially clear. IMPRESSION: No visible acute intracranial abnormality. No hemorrhage or mass effect. A Read Rads physician provided preliminary results at 2:50 a.m. on 05/24/2016. MTDD
--- NOTE | 2016-05-24 07:58 | PROGRESS NOTE ---
DATE: 05/24/2016 SUBJECTIVE: The patient had episode of altered mental status yesterday. He had a CT scan which officially has not been read but I did not see any obvious pathology. He has subsequently made improvements in his altered mental status. I did view the patient's EGD with Dr. Das. No obvious intraluminal pathology noted in the duodenum. His NG tube was removed at that time and he has now developed abdominal distention again. There is a small bowel series ordered. The patient has no complaints of pain at this time. OBJECTIVE: Vital Signs: The patient is currently afebrile. Temperature 97.7 degrees, pulse 87, respiratory rate recorded in the 20s to 30s, blood pressure 172/97, O2 saturation 97% on room air. General: No acute distress. Resting. HEENT: Normocephalic, atraumatic. Pupils are round, react to light. Mucous membranes moist. Oropharynx benign. Neck: Supple. Trachea midline. Cardiovascular: Normal sinus rhythm. Lungs: Some coarse sounds bilaterally. Abdomen: More distended than yesterday. Nontender at this time. Extremities: Moves all extremities. Neurologic: The patient is interactive. Skin: No signs of jaundice. Vascular: All extremities perfused. LABORATORY: White blood cell count is 10, hematocrit 31.8, platelet count 194,000. Remainder of labs reviewed. Microbiology shows E. coli in the blood. ASSESSMENT AND PLAN: A 51-year-old male with possible duodenitis, possible cholecystitis, and a septic like picture. 1. Sepsis. At this time he has E. coli in his blood. He is on antibiotics. Being treated by the hospitalist service. We will continue to treat him per protocol. 2. Possible duodenitis. At this time no revealing pathology noted on his EGD. He does have a GI series ordered. He has become distended again since his NG tube was removed. Will follow up with his small bowel series to evaluate any pathology at this point. 3. Cholecystitis. At this time the patient is without tenderness. His white blood cell count is normal. Will order a HIDA scan to evaluate. Have him tentatively scheduled for potential cholecystectomy on . But will follow up with these tests and make sure the patient remains relatively stable to tolerate surgery.
[2016-05-24] MEDS: PROTONIX 80 MG in NS 80 ML IV SCH ×2 (08:58→11:26)
--- NOTE | 2016-05-24 11:01 | Diag Imaging Result Document ---
PROCEDURE NAME: HIDA SCAN W/O EJECT. FRACTION - 05/24/2016 HIDA SCAN WITHOUT EJECTION FRACTION: TECHNIQUE: 5.9 mCi of Choletec administration. Imaging for 2 hours performed. FINDINGS: There is normal uptake of radiopharmaceutical within the liver with normal emptying into the small bowel. The gallbladder does not fill through 2 hours. No evidence of a leak in the right abdomen beneath the liver. IMPRESSION: Abnormal exam with no filling of the gallbladder through 2 hours. [facility]
[2016-05-24] MEDS: MORPHINE IV PRN (11:31)
[2016-05-24] MEDS: ZYPREXA ZYDIS PO SCH ×2 (12:32→18:44)
[2016-05-24] MEDS: KLONOPIN PO SCH ×4 (12:32→20:48)
[2016-05-24] MEDS ORDERED: NORVASC PO SCH (13:45)
[2016-05-24] MEDS ORDERED: SODIUM PHOSPHATE 30 MMOL in NS 250 ML IV ONE (13:53)
[2016-05-24] MEDS ORDERED: NORVASC PO ONE (14:05)
--- NOTE | 2016-05-24 14:49 | PROGRESS NOTE ---
DATE: 05/24/2016 SUBJECTIVE: Patient lying in bed, reporting feeling better, no abdominal pain. OBJECTIVE: Vital Signs: Temperature 97.2 degrees, heart rate 91, respiratory rate 33, blood pressure 172/91, O2 saturation 98% on 4 L nasal cannula. General Examination: This is a 51-year- old male lying in bed in no acute distress. HEENT: Head is normocephalic, atraumatic. Anicteric sclerae and pale conjunctivae. Mucous membranes moist. Neck: Supple. No JVD noted. No carotid bruits. No lymphadenopathy. No thyromegaly. Cardiovascular: S1, S2 heard. No murmurs, gallops, or rubs. Regular rate and rhythm. Cardiovascular: S1, S2 heard. No murmurs, gallops, or rubs. Regular rate and rhythm. Abdomen: Soft, moderately distended. No signs of peritoneal irritation. Mild generalized tenderness to palpation all 4 quadrants but no rebound. Extremities: No edema, clubbing or cyanosis. Peripheral pulses present in both legs. Neurological: Patient is alert and oriented x3. Moved 4 extremities. LABORATORY DATA: White cell count 10.38, hemoglobin 10.8, hematocrit 31.8, platelets 194,000, pH shows a pH of 7.43, pCO2 of 33, PO2 51. BMP is okay and phosphorus 1.8. ASSESSMENT AND PLAN: 1. Escherichia coli sepsis. This condition is resolving. Blood culture shows Escherichia coli almost pansensitive. Currently patient is on Zosyn. Will continue with the same treatment and we can switch to cephalexin upon discharge. 2. Possible duodenal ulcer. EGD performed by Dr. Das did not show any duodenal pathology. At this time we are checking CBC daily and hemoglobin is stable so far. Will continue checking CBC daily. 3. Acute kidney injury. This condition is completely resolved. 4. Hypokalemia resolved. 5. Hypophosphatemia. Will provide sodium phosphate and also Neutra-Phos and will check phosphate daily for at least the next 3 days. 6. Hypothyroidism. We have switch IV levothyroxine to oral. 7. Schizophrenia aware.
[2016-05-24] MEDS: LEVAQUIN 500 MG/D5W 100 ML IV SCH (17:18)
[2016-05-24] MEDS: NEUTRA-PHOS PO SCH ×2 (17:18→20:44)
[2016-05-24] MEDS: ZOCOR PO SCH (20:47)
[2016-05-24] MEDS: PATIENT'S OWN MED PO SCH (20:49)
[2016-05-25] MEDS: ZOSYN 2.25 GM/NS 50 ML IV SCH ×4 (01:28→22:09)
[2016-05-25] MEDS: CLINIMIX E 4.25%-5% SOLUTION 1,000 ML IV SCH ×3 (04:18→22:01)
[2016-05-25] MEDS: SYNTHROID IV SCH (05:20)
--- NOTE | 2016-05-25 06:48 | PROGRESS NOTE ---
DATE: 05/25/2016 SUBJECTIVE: NG tube had been pulled out. He did have his HIDA scan yesterday which showed no filling on the gallbladder. He has a small bowel series pending for this morning. Patient is without complaints. OBJECTIVE: Vital Signs: Patient is currently afebrile. Pulse is 83. Blood pressure 158/91. O2 saturation 95%. General: No acute distress. Alert, interactive, male looks stated age. HEENT: Normocephalic, atraumatic. Pupils equal, round, react to light. Mucous membranes moist. Oropharynx benign. Neck: Supple. Trachea midline. Cardiovascular: Regular rate and rhythm. Lungs: Coarse sounds noted bilaterally. Abdomen: Essentially unchanged from yesterday. Nontender at this time. Extremities: Moves all extremities well. Neurologic: Grossly intact. Skin: No signs of jaundice. Vascular: All extremities perfused. LABORATORY: Reviewed from yesterday. Current labs pending. HIDA scan from yesterday reviewed. Showed nonfilling of the gallbladder is by the radiologist report. I did review the images. ASSESSMENT AND PLAN: A 51-year-old male with possible duodenitis, possible cholecystitis in a septic-like picture. 1. Sepsis. At this time, he does have Escherichia coli which is pansensitive. He is on Zosyn. This is being managed by the hospitalist service. 2. Possible duodenitis. At this time, he does have a small bowel series pending. His upper gastrointestinal did not showing revealing pathology. Would like to follow up with this before planning on surgical intervention for his gallbladder. 3. Cholecystitis. At this time, his HIDA scan showed nonvisualization of the gallbladder. We will plan on surgical intervention tomorrow. We will obtain consent. At this time, if the small-bowel series shows any other pathology, we will alter our plan, but otherwise we will consider cholecystectomy in the morning.
[2016-05-25] MEDS: NS 1,000 ML IV SCH ×2 (07:54→23:04)
[2016-05-25] MEDS ORDERED: PRILOSEC PO SCH (09:00)
[2016-05-25] MEDS ORDERED: SYNTHROID PO SCH (09:00)
[2016-05-25] MEDS: NEUTRA-PHOS PO SCH ×4 (11:25→21:14)
[2016-05-25] MEDS: COZAAR PO SCH (11:25)
[2016-05-25] MEDS: HYDROCHLOROTHIAZIDE PO SCH (11:26)
[2016-05-25] MEDS: TOPROL XL PO SCH (11:26)
[2016-05-25] MEDS: PATIENT'S OWN MED PO SCH ×2 (12:05→23:05)
[2016-05-25] MEDS: KLONOPIN PO SCH ×2 (12:07→22:39)
[2016-05-25] MEDS: LOFIBRA PO SCH (12:07)
--- NOTE | 2016-05-25 12:21 | Diag Imaging Result Document ---
PROCEDURE NAME: SMALL BOWEL SERIES ONLY - 05/25/2016 SMALL BOWEL EXAM: COMPARISON: 05/21/2016. FINDINGS: The stomach is moderately distended with gas, stable from the prior CT. There is a medial duodenal diverticulum also stable from prior. There is relatively good passage of contrast out of the stomach and into the bowels. There is normal mucosal pattern of the small bowel. The terminal ileum is normal. The proximal portions of the colon are normal. IMPRESSION: 1. The stomach is distended with air similar to prior. Reason is unclear. 2. Duodenal diverticulum. 3. Grossly normal exam of the small bowel.
[2016-05-25 13:34] LABS: AGAP 10; BUN 15 mg/dL (8-22); CALCIUM 7.6 mg/dL (8.8-10.2); CHLORIDE 108 mmol/L (98-107); COSMO 282; MAGNESIUM 2.1 mg/dL (1.5-2.7); POTASSIUM 3.8 mmol/L (3.5-5.1); SODIUM 141 mmol/L (136-145); TCO2 23 mmol/L (25-35)
[2016-05-25] MEDS: NORVASC PO SCH ×2 (13:54→21:14)
[2016-05-25 13:58] LABS: BASO% 0.2 % (0.0-0.8); EOS# 0.26 X1000 (0.0-0.7); HEMATOCRIT 31.7 % (42.0-52.0); HEMOGLOBIN 10.9 g/dL (14.0-18.0); IMM GRAN# 0.46 X1000 (0.0-0.04); IMM GRAN% 3.5 % (0.0-0.5); LYMPH# 1.53 X1000 (1.2-3.4); LYMPH% 11.8 % (20.5-51.1); MANUAL DIFF NEEDED? YES; MCH 33.2 PG (27-31); MCHC 34.4 g/dL (33-37); MCV 96.6 FL (81-99); MONO% 6.9 % (1.7-9.3); MPV 10.7 FL (7.4-10.4); NEUT% 75.6 % (42.2-75.2); PLT 269 X1000 (130-400); RBC 3.28 XMIL (4.7-6.1)
[2016-05-25 14:06] LABS: BANDS 4 % (0-1); LYMPHS 14 % (21-51); MONO 2 % (1-9); STOMATOCYTES OCCASIONAL
--- NOTE | 2016-05-25 15:15 | PROGRESS NOTE ---
DATE: 05/25/2016 SUBJECTIVE: Patient is feeling fine. He reports mild abdominal distention but no abdominal pain. No fever or chills. OBJECTIVE: Vital Signs: Temperature 98.3 degrees, heart rate 105, respiratory rate 24, blood pressure 191/96, O2 saturation 94% on 4 L nasal cannula. General Examination: This is a 51-year- old, male, lying in bed, in no acute distress. HEENT: Head is normocephalic, atraumatic. Anicteric sclerae and pale conjunctivae. Mucous membranes moist. Neck: Supple. No JVD noted. No carotid bruits. No lymphadenopathy. No thyromegaly. Cardiovascular: S1, S2 heard. No murmurs, gallops, or rubs. Regular rate and rhythm. Respiratory Exam: Some coarse breath sounds in both bases but patient is not using any accessory muscles or having work of breathing. Abdomen: Soft, nontender to palpation. A little bit distended. Bowel sounds present but distant. No organomegaly. Extremities: No clubbing, cyanosis, or edema. Peripheral pulses present in both legs. Neurological: Alert and oriented x3. Moves 4 extremities. LABORATORY DATA: White cell count 12.98, hemoglobin 10.9, hematocrit 31.7, platelets 269,000. BMP completely unremarkable. Phosphorus 2.2. ASSESSMENT AND PLAN: 1. E. coli sepsis. The blood culture shows E coli almost pansensitive so, the patient by now is on Zosyn and today is the day #4. We will continue with same management. 2. Acute kidney injury resolved. 3. Cholecystitis. Dr. Chawla from General Surgery is planning to a cholecystectomy tomorrow. 4. Hypophosphatemia. That condition is resolving. We will continue with Neutra-Phos and check phosphate levels tomorrow. 5. Hypothyroidism. Currently the patient is Synthroid 100 mg p.o. daily. We will continue with the same management. 6. Schizophrenia. Aware. The patient is on olanzapine. 7. Hypertension. Blood pressure is really getting higher so we have restarted home medication but the dose has not been given today because patient went to have a small bowel series. Will restart all of them and add amlodipine 5 mg p.o. b.i.d. to his current treatment.
--- NOTE | 2016-05-25 16:07 | PROGRESS NOTE ---
DATE: 05/25/2016 SUBJECTIVE: Currently resting in bed. He is eating better. He is scheduled for a cholecystectomy tomorrow. His HIDA scan showed no filling of the gallbladder at 2 hours. OBJECTIVE: Vital signs: Temperature of 98.3 degrees, pulse rate of 105, respiratory rate of 24, blood pressure of 191/90, saturating 95% on 4 L nasal cannula. General: Moderately built, moderately nourished, lying in bed, in no acute distress. HEENT: Pale conjunctivae. No icterus. Neck: Supple. Abdomen: Obese, soft, nontender, nondistended. Bowel sounds are present but hypoactive. Extremities: No cyanosis and clubbing. Neurologic: Alert, awake, oriented. LABS: His hemoglobin and hematocrit are 10.9 and 31.7, white count of 12.9, and platelet count of 269,000. Sodium 141, potassium 3.8, chloride 100, bicarb 20, anion gap 10, BUN of 15, creatinine 0.8, glucose of 101, calcium 7.6, phosphorus 2.2, magnesium 2.1. Small bowel x-ray was done today and showed the stomach is distended with air similar to prior. Reason is unclear. Duodenal diverticulum is noted. Normal exam of the small bowel. The terminal ileum is normal. IMPRESSIONS AND PLAN: 1. Acute cholecystitis causing gram negative sepsis. He is on IV antibiotics with Zosyn and Levaquin. His sepsis is improving. He is scheduled for a colonoscopy tomorrow. 2. Esophagitis. Continue on Protonix twice daily. 3. Anemia. Continue to watch for now. 4. Abdominal distention and ileus likely from cholecystitis. If it persists we may elect to do a repeat NG tube insertion. 5. Above plan was discussed with the patient and the nurse and all questions answered. [facility]
--- NOTE | 2016-05-25 18:33 | PROGRESS NOTE ---
DATE: 05/24/2016 SUBJECTIVE: Resting in bed, eating some. Had the esophagitis and gastroesophageal reflux on upper GI endoscopy. He is getting a HIDA scan. OBJECTIVE: Vital signs: Stable with Temperature of 98 degrees, pulse of 80, respiratory rate 24, blood pressure 190/90, saturation 95% on 4 L nasal cannula. General: Moderately built, lying in bed. HEENT: Conjunctival pallor present. No icterus. Neck: Supple. Trachea in the midline. Heart: Normal. Lungs: Normal. Abdomen: Obese and soft. Non tender, but on deep palpation in the right upper quadrant there is some mild tenderness, nondistended. Bowel sounds are present and hypoactive. Extremities: No cyanosis or clubbing. Neurological: Alert, awake, and oriented. LABS: Hemoglobin and hematocrit are 10.9 and 31.7, white count 12.9, platelet count 269,000. Electrolytes are normal. Magnesium is 2.1. IMAGING: He is getting small-bowel x-rays. IMPRESSION/PLAN: 1. Most likely acute cholecystitis is causing the gram-negative sepsis. The x-rays showing gastric distention, probably related to sepsis. 2. Esophagitis. 3. Anemia. He will be followed up. I think the plan is going to be for potential cholecystectomy, and we will work up for his anemia with possible colonoscopy depending on the timing. Dr. Das will see him tomorrow and decide.
[2016-05-25] MEDS: ZYPREXA ZYDIS PO SCH (18:53)
[2016-05-25] MEDS: SODIUM CHLORIDE 0.9% INJ SCH (21:14)
[2016-05-25] MEDS: ZOCOR PO SCH (21:14)
[2016-05-25] MEDS: ICAR-C PO SCH (21:14)
[2016-05-25] MEDS: PROTONIX IV SCH (21:14)
[2016-05-25] MEDS: LEVAQUIN 500 MG/D5W 100 ML IV SCH (21:50)
[2016-05-26] MEDS: NS 1,000 ML IV SCH ×2 (01:04→11:25)
[2016-05-26] MEDS: ZOSYN 2.25 GM/NS 50 ML IV SCH ×5 (04:27→23:57)
--- NOTE | 2016-05-26 06:46 | PROGRESS NOTE ---
DATE: 05/26/2016 SUBJECTIVE: Patient transferred from the floor. No major issues. He did have a small bowel series done yesterday that showed no obstruction. He did still have some gastric distention on the small-bowel series. OBJECTIVE: Vital Signs: Patient is currently afebrile. His vital signs are stable. General: No acute distress. Alert, interactive, male. Looks stated age. HEENT: Normocephalic, atraumatic. Pupils equal, round, react to light. Mucous membranes moist. Oropharynx benign. Neck: Supple. Trachea midline. Cardiovascular: Regular rate and rhythm. Lungs: Grossly clear. Abdomen: Distended but soft. Still no tenderness on examination today. Extremities: Moves all extremities. Neurologic: Grossly intact. Skin: No signs of jaundice. Vascular: All extremities perfused. LABORATORY: Currently pending, but none as of right now. ASSESSMENT AND PLAN: A 51-year-old, male with possible duodenitis, possible cholecystitis and sepsis-like picture. 1. Septic-like picture. At this time, patient is clinically doing well. He has pansensitive E- coli in his blood. He is currently on antibiotics. 2. Possible duodenitis. At this time, he does have a duodenal ulcer, otherwise no other pathology has been appreciated. 3. Cholecystitis. He did have nonvisualization of his gallbladder on the HIDA scan. We will plan on surgical intervention today.
[2016-05-26 07:29] LABS: BASO% 0.3 % (0.0-0.8); EOS# 0.26 X1000 (0.0-0.7); EOS% 1.7 % (0.0-10.0); HEMATOCRIT 36.8 % (42.0-52.0); HEMOGLOBIN 12.7 g/dL (14.0-18.0); IMM GRAN# 0.59 X1000 (0.0-0.04); IMM GRAN% 3.8 % (0.0-0.5); LYMPH# 1.43 X1000 (1.2-3.4); LYMPH% 9.3 % (20.5-51.1); MANUAL DIFF NEEDED? YES; MCHC 34.5 g/dL (33-37); MCV 95.6 FL (81-99); MONO% 5.9 % (1.7-9.3); MPV 10.9 FL (7.4-10.4); PLT 360 X1000 (130-400); RBC 3.85 XMIL (4.7-6.1)
[2016-05-26 07:44] LABS: AGAP 13; BUN 12 mg/dL (8-22); CALCIUM 8.5 mg/dL (8.8-10.2); CHLORIDE 101 mmol/L (98-107); COSMO 273; MAGNESIUM 1.9 mg/dL (1.5-2.7); POTASSIUM 3.7 mmol/L (3.5-5.1); SODIUM 136 mmol/L (136-145); TCO2 22 mmol/L (25-35)
[2016-05-26 07:53] LABS: EOS 6 % (1-10); LYMPHS 16 % (21-51); MONO 4 % (1-9)
[2016-05-26] MEDS: PROTONIX IV SCH ×2 (09:24→20:22)
[2016-05-26] MEDS: SODIUM CHLORIDE 0.9% INJ SCH ×2 (09:24→20:22)
[2016-05-26] MEDS: ATIVAN IV PRN ×2 (11:17→20:22)
[2016-05-26] MEDS ORDERED: LABETALOL IV PRN (11:20)
[2016-05-26] MEDS ORDERED: APRESOLINE IV PRN (11:23)
--- NOTE | 2016-05-26 11:31 | Diag Imaging Result Document ---
PROCEDURE NAME: CHEST-PORTABLE - 05/26/2016 PORTABLE CHEST AND ABDOMEN: FINDINGS: A nasogastric tube overlies the esophagus and stomach. Infiltrates remain in the lower lungs. The heart remains mildly prominent. IMPRESSION: Nasogastric tube enters the stomach.
[2016-05-26] MEDS: CLINIMIX E 4.25%-5% SOLUTION 1,000 ML IV SCH (11:32)
--- NOTE | 2016-05-26 11:53 | PROGRESS NOTE ---
DATE: 05/26/2016 SUBJECTIVE: Patient is resting in bed. Abdomen is distended. Dr. Chawla initially scheduled him for cholecystectomy today but he will have to cancel this for today and reschedule tomorrow as he has abdominal distention.Vital signs: Temperature 98 degrees, pulse rate of 102, respiratory rate 22, blood pressure 171/91, saturating 97% on 3 L nasal cannula. General Appearance: Moderately well-nourished, lying in bed, in no acute distress. HEENT: Mild pallor. No icterus. Neck: Supple. Abdomen: Is distended. No guarding no rebound. Mild discomfort in the right upper quadrant. Extremities: No cyanosis, clubbing. Neurologic: He is alert, awake, oriented. LABS: Hemoglobin and hematocrit is 12.7, 36.8, white count of 15.3, platelet count of 360,000. Sodium 136, potassium 3.7, chloride 101, bicarb 20, anion gap 13, BUN of 12, creatinine 0.8, glucose 120, calcium is 8.5, phosphorus is 2.8, magnesium 1.9. IMPRESSION AND PLAN: 1. Cholecystitis. Will be scheduled for cholecystectomy tomorrow. 2. Gram negative sepsis on IV antibiotics. 3. Stomach distention. NG tube will be inserted today to help him decompress. 4. Esophagitis. Continue PPIs. 5. Nutrition. We will increase the Clinimix to 100 per hour. 6. Further recommendations are pending the above.
[2016-05-26] MEDS ORDERED: STERILE WATER INJ. INJ PRN (14:31)
[2016-05-26] MEDS ORDERED: GEODON IM PRN (14:31)
[2016-05-26 15:01] LABS: INR 1.15; PROTIME 12.2 Seconds (9.2-11.7)
[2016-05-26] MEDS ORDERED: NS 250 ML ONE (15:19)
[2016-05-26] MEDS: COZAAR PO SCH (16:28)
[2016-05-26] MEDS: ICAR-C PO SCH ×2 (16:28→20:23)
[2016-05-26] MEDS: LOFIBRA PO SCH (16:28)
[2016-05-26] MEDS: HYDROCHLOROTHIAZIDE PO SCH (16:28)
[2016-05-26] MEDS: NORVASC PO SCH ×2 (16:29→20:23)
[2016-05-26] MEDS: SYNTHROID PO SCH (16:29)
[2016-05-26] MEDS: PATIENT'S OWN MED PO SCH ×2 (16:29→20:31)
[2016-05-26] MEDS: TOPROL XL PO SCH (16:35)
[2016-05-26] MEDS: LEVAQUIN 500 MG/D5W 100 ML IV SCH (18:28)
[2016-05-26] MEDS: ZOCOR PO SCH (20:21)
[2016-05-26] MEDS: ZYPREXA ZYDIS PO SCH (20:25)
[2016-05-27] MEDS: CLINIMIX E 4.25%-5% SOLUTION 1,000 ML IV SCH ×2 (02:53→15:56)
--- NOTE | 2016-05-27 04:12 | PROGRESS NOTE ---
DATE: 05/26/2016 SUBJECTIVE: Patient reports more abdominal distention, mild abdominal pain as well. He did not vomit. He denies any fever or chills. OBJECTIVE: Vital Signs: Temperature 98.6 degrees, heart rate 107, respiratory rate 21, blood pressure 163/99, and O2 saturation 97% on 2 L nasal cannula. General Examination: These is a 51- year-old, male, lying in bed, in no acute distress. HEENT: Head is normocephalic, atraumatic. Anicteric sclerae and pale conjunctivae. Mucous membranes moist. Neck: Supple. No jugular venous distention noted. No carotid bruits. No lymphadenopathy. No thyromegaly. Cardiovascular Examination: S1-S2 heard. No murmurs, gallops, or rubs. Regular rate and rhythm. Respiratory Examination: Clear bilaterally to auscultation. No work of breathing or using accessory muscles. Abdomen: Markedly distended in comparing with yesterday. Tympanic bowel sounds present, but distant. No organomegaly. Extremities: No clubbing, cyanosis, or edema. Peripheral pulses present in both legs. Neurological Examination: Patient alert oriented x3. Moves 4 extremities. Cranial nerves 2-12 grossly normal. LABORATORY DATA: White cell count 15.34, hemoglobin 12.7, hematocrit 36.8, platelets 360,000. BMP is completely unremarkable with phosphorus 2.8. ASSESSMENT AND PLAN: 1. Escherichia coli sepsis. At this probably is pansensitive but by now we will continue with Zosyn. Today is day #5. We will continue with the same management. 2. Acute cholecystitis. Dr. Chawla from General Surgery, had initially planned to do laparoscopic cholecystectomy today, but because of this worsening abdominal distention he preferred to skip this surgery at least for today. They are following this patient. 3. Hypophosphatemia, resolved. 4. Hypothyroidism. Will continue with Synthroid. 5. Hypertension. Because this patient is not able to take medicines by mouth, we have put this patient on hydralazine and labetalol p.r.n. to control high blood pressure. Overall, this patient was doing good, but unfortunately he started developing abdominal distention and the surgery that was initially scheduled for today was postponed. We will see what Dr. Chawla thinks and we will go from there.
[2016-05-27] MEDS: ZOSYN 2.25 GM/NS 50 ML IV SCH ×4 (05:38→23:27)
--- NOTE | 2016-05-27 06:19 | PROGRESS NOTE ---
DATE: 05/27/2016 SUBJECTIVE: The patient is doing better this morning and had an NG tube placed yesterday and his abdominal distention is much improved. OBJECTIVE: Vital Signs: Patient is currently afebrile. His vital signs were stable. General: No acute distress. Interactive male looks stated age. HEENT: Normocephalic, atraumatic. Pupils equal, round, react to light. Mucous membranes moist. Oropharynx benign. Neck: Supple. Trachea midline. Cardiovascular: Regular rate and rhythm. Lungs: Grossly clear. Abdomen: Soft, less distended. Nontender. Neurologic: Grossly intact. Skin: No signs of jaundice. Vascular: All extremities perfused. LABORATORY: None currently. ASSESSMENT AND PLAN: A 51-year-old male with possible duodenitis, possible cholecystitis and a septic-like picture. 1. Septic-like picture. At this time, almost clinically resolved. Patient is on antibiotics. We will continue to follow. 2. Possible duodenitis at this time, may be related to his gallbladder. Workup thus far has not showing any pathology besides inflammation seen on CT scan. 3. Cholecystitis. At this time, we will plan on surgical intervention later today. His distention is less to make it more feasible to do the procedure.
[2016-05-27] MEDS: SYNTHROID PO SCH (06:21)
[2016-05-27 06:30] LABS: MANUAL DIFF NEEDED? NO
[2016-05-27 06:44] LABS: BASO% 0.3 % (0.0-0.8); EOS# 0.16 X1000 (0.0-0.7); EOS% 1.5 % (0.0-10.0); HEMATOCRIT 33.9 % (42.0-52.0); HEMOGLOBIN 11.6 g/dL (14.0-18.0); IMM GRAN# 0.26 X1000 (0.0-0.04); IMM GRAN% 2.4 % (0.0-0.5); LYMPH# 1.25 X1000 (1.2-3.4); LYMPH% 11.8 % (20.5-51.1); MCHC 34.2 g/dL (33-37); MCV 96.3 FL (81-99); MONO# 0.84 X1000 (0.11-0.59); MONO% 7.9 % (1.7-9.3); MPV 10.8 FL (7.4-10.4); NEUT% 76.1 % (42.2-75.2); PLT 328 X1000 (130-400); RBC 3.52 XMIL (4.7-6.1)
[2016-05-27 06:59] LABS: AGAP 10; BUN 12 mg/dL (8-22); CALCIUM 8.2 mg/dL (8.8-10.2); CHLORIDE 103 mmol/L (98-107); COSMO 277; MAGNESIUM 1.9 mg/dL (1.5-2.7); POTASSIUM 3.4 mmol/L (3.5-5.1); SODIUM 138 mmol/L (136-145); TCO2 25 mmol/L (25-35)
[2016-05-27] MEDS: COZAAR PO SCH (09:12)
[2016-05-27] MEDS: ICAR-C PO SCH ×2 (09:13→20:59)
[2016-05-27] MEDS: PATIENT'S OWN MED PO SCH ×2 (09:13→21:00)
[2016-05-27] MEDS: LOFIBRA PO SCH (09:13)
[2016-05-27] MEDS: NORVASC PO SCH ×2 (09:13→20:59)
[2016-05-27] MEDS: HYDROCHLOROTHIAZIDE PO SCH (09:14)
[2016-05-27] MEDS: ATIVAN IV PRN (09:36)
[2016-05-27] MEDS: PROTONIX IV SCH ×2 (09:36→20:59)
[2016-05-27] MEDS: SODIUM CHLORIDE 0.9% INJ SCH ×2 (09:37→20:59)
[2016-05-27] MEDS ORDERED: LR 1,000 ML ONE (11:51)
[2016-05-27] MEDS ORDERED: MARCAINE 0.25% PF/EPI 1:200,000 ONE (11:52)
[2016-05-27] MEDS ORDERED: SODIUM CHLORIDE 0.9% ONE (11:52)
[2016-05-27] MEDS ORDERED: XYLOCAINE 1% ONE (11:52)
[2016-05-27] MEDS: MORPHINE ONE ×7 (14:40→15:25)
[2016-05-27] MEDS ORDERED: DIPRIVAN 1% ONE (14:43)
[2016-05-27] MEDS ORDERED: FENTANYL ONE (14:43)
[2016-05-27] MEDS ORDERED: NORCURON ONE (14:58)
[2016-05-27] MEDS ORDERED: ZOFRAN ONE (14:58)
[2016-05-27] MEDS ORDERED: LR 2,000 ML ONE (14:58)
[2016-05-27] MEDS ORDERED: STERILE WATER INJ. ONE (14:58)
[2016-05-27] MEDS ORDERED: NEOSTIGMINE ONE (14:58)
[2016-05-27] MEDS ORDERED: XYLOCAINE-MPF 2% ONE (14:58)
[2016-05-27] MEDS ORDERED: ANESTHESIA PB SET 88 IN 5742 ONE (14:58)
[2016-05-27] MEDS ORDERED: QUELICIN (DOSE) ONE (14:58)
[2016-05-27] MEDS ORDERED: DECADRON ONE (14:58)
[2016-05-27] MEDS ORDERED: EXTENSION SET 32 IN 4522 ONE (14:58)
[2016-05-27] MEDS ORDERED: ROBINUL ONE (14:58)
--- NOTE | 2016-05-27 14:58 | OPERATIVE NOTE ---
PROCEDURE DATE: 05/27/2016 PREOP DIAGNOSIS: Cholecystitis. POSTOP DIAGNOSIS: Gangrenous cholecystitis. PROCEDURE: Laparoscopic cholecystectomy. SURGEON: Estuardo Chawla. DATA STEWARD: None. ANESTHESIA: General endotracheal. INTRAOPERATIVE FINDINGS: Gangrenous cholecystitis. ESTIMATED BLOOD LOSS: 50 mL. SPECIMENS REMOVED: Gallbladder. HISTORY OF PRESENT ILLNESS: A 51-year-old male who came in with a sepsis-like picture. It was found that he had cholecystitis. The risks, benefits and alternatives for cholecystectomy were discussed. All questions were answered. DESCRIPTION OF PROCEDURE: After informed consent was obtained, patient was brought to the operative theatre, transferred to the operating table and placed in supine position. General endotracheal anesthesia was then performed without complication. A formal time-out was then performed confirming patient, date, and procedure. All were in agreement at that time. Attention was given to the abdomen. An infraumbilical incision was made through which using Optiview technique we were able to insert an 11 mm trocar, connected to insufflation. Pneumoperitoneum was achieved. Under direct visualization placed 3 more trocars, all 5 mm, 1 in the subxiphoid, 2 in the right upper quadrant. The gallbladder was identified and retracted cephalad. There was a significant amount of adhesions and inflammatory process occurring. It took some time to dissect out the surrounding tissue to achieve the critical view of safety. We were able to do so. We doubly clipped and ligated the cystic duct and cystic artery then dissected the gallbladder off the gallbladder fossa. It was so densely inflamed we had to leave a portion of the superior aspect of the posterior wall against the gallbladder. There was also purulence encountered in the posterior wall which we drained. But we were able to remove the gallbladder and bring it out through the infraumbilical incision in endobag. We irrigated out the abdomen copiously. Given the inflammatory process we elected to place a drain which we tunneled from the most lateral trocar site, secured in place in a standard fashion, irrigated the abdomen and closed the infraumbilical incision with 0 Vicryl on a Arian-Jesus device. We then removed all trocars, disconnected insufflation. Pneumoperitoneum was released. We then closed all trocar sites with 4- 0 Monocryl. The patient tolerated the procedure well, was transferred to recovery room in stable condition.
[2016-05-27] MEDS ORDERED: DUONEB (A & A) INH ONE (15:12)
--- NOTE | 2016-05-27 15:53 | PROGRESS NOTE ---
DATE: 05/27/2016 SUBJECTIVE: The patient reports definitely less abdominal distention. No abdominal pain. Mildly nauseated, but definitely feeling much better. OBJECTIVE: Vital Signs: Temperature 97.9, heart rate 105, respiratory rate 20, blood pressure 164/95, O2 saturation 92% on 2 L nasal cannula. General Examination: This is a 51-year-old, male, lying in bed, in no acute distress. HEENT: Head is normocephalic, atraumatic. Anicteric sclerae and pale conjunctivae. Mucous membranes moist. Neck: Supple. No JVD noted. No carotid bruits. No lymphadenopathy. No thyromegaly. Cardiovascular: S1, S2 heard. No murmurs, gallops, or rubs. Regular rate and rhythm. Respiratory: Clear bilaterally to auscultation. No work of breathing or using accessory muscles. Abdomen: Soft, nontender to palpation. Less distended in comparing with yesterday. NG tube placed with canister full of gastric secretions. No blood in it. Extremities: No clubbing, cyanosis, or edema. Peripheral pulses present in both legs. Neurological: Patient alert, oriented x3. Moves 4 extremities. LABORATORY DATA: White cell count 10.3, hemoglobin 11.6, hematocrit 33.9, platelets 328. BMP unremarkable. ASSESSMENT AND PLAN: 1. E. coli sepsis. Most probably coming from the gallbladder. At this time, we are going to continue with Zosyn. Today is day #6 of treatment. 2. Acute cholecystitis. Dr. Chawla has evaluated this patient. He is going to take him to OR today. 3. Hypophosphatemia, resolved. 4. Hypothyroidism. Will continue Synthroid. 5. Hypertension. Recently, his blood pressures are definitely not well controlled, but patient cannot take p.o. medications.
[2016-05-27] MEDS: MORPHINE IV PRN (16:02)
[2016-05-27] MEDS: LEVAQUIN 500 MG/D5W 100 ML IV SCH (18:40)
[2016-05-27] MEDS: ZYPREXA ZYDIS PO SCH (20:58)
[2016-05-27] MEDS: ZOCOR PO SCH (20:59)
[2016-05-28] MEDS: CLINIMIX E 4.25%-5% SOLUTION 1,000 ML IV SCH ×3 (01:49→22:30)
[2016-05-28] MEDS: ZOSYN 2.25 GM/NS 50 ML IV SCH ×4 (04:58→22:29)
[2016-05-28] MEDS: SYNTHROID PO SCH (05:51)
[2016-05-28 06:10] LABS: MANUAL DIFF NEEDED? NO
[2016-05-28 06:30] LABS: BASO% 0.1 % (0.0-0.8); HEMATOCRIT 31.6 % (42.0-52.0); HEMOGLOBIN 10.3 g/dL (14.0-18.0); IMM GRAN% 1.5 % (0.0-0.5); LYMPH# 1.16 X1000 (1.2-3.4); LYMPH% 8.5 % (20.5-51.1); MCH 32.8 PG (27-31); MCHC 32.6 g/dL (33-37); MCV 100.6 FL (81-99); MONO# 1.04 X1000 (0.11-0.59); MONO% 7.6 % (1.7-9.3); MPV 10.8 FL (7.4-10.4); NEUT% 82.3 % (42.2-75.2); PLT 334 X1000 (130-400); RBC 3.14 XMIL (4.7-6.1)
[2016-05-28 07:35] LABS: AGAP 13; BUN 16 mg/dL (8-22); CALCIUM 8.2 mg/dL (8.8-10.2); CHLORIDE 103 mmol/L (98-107); COSMO 279; POTASSIUM 4.1 mmol/L (3.5-5.1); SODIUM 138 mmol/L (136-145); TCO2 22 mmol/L (25-35)
[2016-05-28] MEDS: NORVASC PO SCH ×2 (08:18→22:29)
[2016-05-28] MEDS: COZAAR PO SCH (08:18)
[2016-05-28] MEDS: LOFIBRA PO SCH (08:18)
[2016-05-28] MEDS: ICAR-C PO SCH ×2 (08:19→22:29)
[2016-05-28] MEDS: SODIUM CHLORIDE 0.9% INJ SCH ×2 (08:19→22:29)
[2016-05-28] MEDS: PROTONIX IV SCH ×2 (08:19→22:29)
[2016-05-28] MEDS: HYDROCHLOROTHIAZIDE PO SCH (08:19)
[2016-05-28] MEDS: PATIENT'S OWN MED PO SCH ×2 (08:24→22:30)
--- NOTE | 2016-05-28 10:11 | PROGRESS NOTE ---
DATE: 05/28/2016 SUBJECTIVE: Less abdominal pain. Patient is going for cholecystectomy today. OBJECTIVE: Vital Signs: Afebrile, heart rate 100, respirations 20, blood pressure 160/90, O2 saturation 92% on 2 L. General: A 51-year-old male lying in bed waiting for a cholecystectomy. HEENT: No scleral icterus. Conjunctival pallor present. Neck is supple. Trachea in the midline. Heart and lungs normal. Abdomen: Tender on deep palpation of the right upper quadrant. He has an NG tube in. The cholecystectomy was canceled yesterday but his abdomen is less distended. Extremities: No cyanosis or clubbing. Neurologic: Alert and oriented. LABORATORY DATA: White count 10,000. Hematocrit 33. IMPRESSION: 1. Escherichia coli sepsis. 2. Acute cholecystitis. 3. Hypothyroidism, on Synthroid. 4. Hypertension. The patient appears stable. He is going for a cholecystectomy. I do not think he has any common bile duct stone. We will follow up after the cholecystectomy.
--- NOTE | 2016-05-28 11:37 | PROGRESS NOTE ---
DATE: 05/28/2016 Mr. Naylor is a 51-year-old white male, who is now postop day 1 from a laparoscopic cholecystectomy for acute cholecystitis per Dr. Chawla. Drain was left at the time of surgery. He still has an NG tube in. His abdomen is distended. He has no bile coming out of the drain, mostly he has serosanguineous fluid. His heart rate is 109, blood pressure 164/94, O2 saturation 96%. He has a Santillan catheter tube in place. His urine output is adequate. His white blood cell count was 13.7, hematocrit is 32%. Electrolytes are within normal limits. BUN and creatinine are 16 and 0.8. PLAN: We will keep his NG tube in place because his abdomen is tightly distended. We will leave his MITRA drain in place. As his bowel activity returns we will remove his NG tube and Santillan catheter tube and slowly advanced his diet. It must be noted that he is afebrile on IV Zosyn.
--- NOTE | 2016-05-28 13:19 | PROGRESS NOTE ---
DATE: 05/28/2016 SUBJECTIVE: Patient reports hurting a little bit in the area of the surgery in the right upper quadrant. Denies any fever or chills. OBJECTIVE: Vital Signs: Temperature 98.7 degrees, heart rate 109, respiratory rate 20, blood pressure 164/94, O2 saturation 96% on 2 L nasal cannula. General Examination: This is a 51-year- old, male, lying in bed, in no acute distress. HEENT: Head is normocephalic, atraumatic. Anicteric sclerae and pale conjunctivae. Mucous membranes moist. Neck: Supple. No JVD noted. No carotid bruits. No lymphadenopathy. No thyromegaly. Cardiovascular: S1, S2 heard. No murmurs, gallops, or rubs. Regular rate and rhythm. Respiratory: Clear bilaterally to auscultation. No work of breathing or using accessory muscles. Abdomen: Soft, distended with the MITRA drain present and NG tube place too. MITRA is draining serosanguineous fluid. The bowel sound distant but present. No organomegaly. Extremities: No clubbing, cyanosis, or edema. Peripheral pulses present in both legs. Neurological: Patient alert and oriented x3. Able to move 4 extremities. LABORATORY DATA: White cell count is 13.72, hemoglobin 10.3, hematocrit 31.6, platelets 334,000. BMP unremarkable. ASSESSMENT AND PLAN: 1. Acute cholecystitis, status post laparoscopic cholecystectomy. General Surgery is following this patient. Patient had a MITRA tube and NG tube placed because of abdominal distention. We will continue following recommendations from General Surgery. 2. E. coli sepsis definitely secondary to this gallbladder infection. Currently he is on Zosyn day #7. We will continue with the same management. Mild increase of white cell count but it is not worrisome. We will check BMP and CBC tomorrow. 3. Hypophosphatemia resolved. 4. Hypothyroidism. Patient is on Synthroid. We will continue with the same management. 5. Hypertension, although patient is NPO and cannot take any blood pressure pills he is on hydralazine and labetalol p.r.n. The blood pressure is between 150 and 160. It is not well controlled but it is not too high. We will continue with the same management.
[2016-05-28] MEDS: ZOCOR PO SCH (22:29)
[2016-05-28] MEDS: MORPHINE IV PRN (22:30)
[2016-05-28] MEDS: ZYPREXA ZYDIS PO SCH (22:45)
[2016-05-29] MEDS: ZOSYN 2.25 GM/NS 50 ML IV SCH ×4 (05:10→23:10)
[2016-05-29] MEDS: SYNTHROID PO SCH (06:20)
[2016-05-29 06:32] LABS: MANUAL DIFF NEEDED? NO
[2016-05-29 06:41] LABS: BASO% 0.1 % (0.0-0.8); EOS# 0.06 X1000 (0.0-0.7); EOS% 0.4 % (0.0-10.0); HEMOGLOBIN 10.7 g/dL (14.0-18.0); IMM GRAN% 0.7 % (0.0-0.5); MCH 33.1 PG (27-31); MCHC 33.4 g/dL (33-37); MCV 99.1 FL (81-99); MONO# 1.36 X1000 (0.11-0.59); MONO% 9.7 % (1.7-9.3); MPV 10.7 FL (7.4-10.4); NEUT% 79.1 % (42.2-75.2); PLT 357 X1000 (130-400); RBC 3.23 XMIL (4.7-6.1)
[2016-05-29 06:59] LABS: AGAP 14; BUN 17 mg/dL (8-22); CALCIUM 8.4 mg/dL (8.8-10.2); CHLORIDE 105 mmol/L (98-107); COSMO 290; POTASSIUM 3.9 mmol/L (3.5-5.1); SODIUM 144 mmol/L (136-145); TCO2 25 mmol/L (25-35)
--- NOTE | 2016-05-29 07:23 | Diag Imaging Result Document ---
PROCEDURE NAME: CHEST/ABD TUBE PLACEMENT - 05/29/2016 PORTABLE CHEST/ABDOMEN: COMPARISON: Compared to 05/26/2016. FINDINGS: There has been repositioning of the nasogastric tube. I believe the tip coils itself back toward the GE junction although I believe it stays within the stomach. The lung bases are clear. The heart is not enlarged. There is contrast within the colon. IMPRESSION: Repositioning of the nasogastric tube with the tip coiled upon itself near the GE junction. Repositioning with further imaging suggested.
[2016-05-29] MEDS: CLINIMIX E 4.25%-5% SOLUTION 1,000 ML IV SCH ×2 (10:24→21:23)
[2016-05-29] MEDS: COZAAR PO SCH (10:27)
[2016-05-29] MEDS: SODIUM CHLORIDE 0.9% INJ SCH ×2 (10:28→21:23)
[2016-05-29] MEDS: PROTONIX IV SCH ×2 (10:28→21:23)
[2016-05-29] MEDS: NORVASC PO SCH ×2 (10:28→21:23)
[2016-05-29] MEDS: HYDROCHLOROTHIAZIDE PO SCH (10:28)
[2016-05-29] MEDS: ICAR-C PO SCH ×2 (10:31→21:23)
[2016-05-29] MEDS: LOFIBRA PO SCH (10:34)
[2016-05-29] MEDS: PATIENT'S OWN MED PO SCH ×2 (10:39→21:24)
--- NOTE | 2016-05-29 14:14 | PROGRESS NOTE ---
DATE: 05/29/2016 Mr. Naylor is postop day 2 from a laparoscopic cholecystectomy. A drain was left at the time of surgery and is draining mostly serosanguineous fluid, no bile. The patient has an NG tube that has just been replaced. His abdomen remains somewhat distended but is not overly tender. His heart rate is 113, blood pressure 162/87, O2 saturation 94%. T-max is 99.1 degrees. He is on IV Zosyn. Will leave the NG tube in place since it has just been replaced by the nurses to suction. We need to increase his activity and continue supportive care.
--- NOTE | 2016-05-29 15:03 | PROGRESS NOTE ---
DATE: 05/29/2016 SUBJECTIVE: Patient reports still complaining of mild abdominal distention. Denies any fever or chills. OBJECTIVE: Vital Signs: Temperature 99.1 degrees, heart rate 113, respiratory rate 20, blood pressure 162/87, O2 saturation 94% on 2 L nasal cannula. General Examination: This is a 51-year- old male lying in bed in no acute distress. HEENT: Head is normocephalic, atraumatic. Anicteric sclerae and pale conjunctivae. Mucous membranes moist. Neck: Supple. No JVD noted. No carotid bruits. No lymphadenopathy. No thyromegaly. Cardiovascular: S1, S2 heard. No murmurs, gallops, rubs. Regular rate and rhythm. Respiratory: Clear bilaterally to auscultation. No work of breathing or using accessory muscles. Abdomen: Soft, a little bit distended more compared with yesterday. NG tube placed. Extremities: No clubbing, cyanosis, edema. Peripheral pulses present in both legs. Neurological: Patient alert, oriented x3. Moves 4 extremities. LABORATORY DATA: White cell count 13.98, hemoglobin 10.7, hematocrit 32.0, platelets 357,000. BMP unremarkable. ASSESSMENT AND PLAN: 1. Acute cholecystitis status post laparoscopic cholecystectomy. General Surgery is following this patient. The patient nasogastric tube and Vincent-Zhao tube placed. Abdominal distention is a little bit worse today. Will continue with same management. Will continue following recommendations from general surgery. 2. Escherichia coli sepsis secondary to cholecystitis. Patient is on Zosyn day #8. At this point we are going to continue with the same management. Patient is not developing any fever although mild elevation white cell count. 3. Hypothyroidism. Patient is on Synthroid. Will continue with the same management. 4. Hypertension. Patient is on NPO so he is not able to take his home medications so that is why blood pressure is still high in the range 140s and 160s. Will resume medication as soon as is able to do that.
[2016-05-29] MEDS: ZYPREXA ZYDIS PO SCH (21:24)
[2016-05-29] MEDS: ZOCOR PO SCH (21:24)
--- NOTE | 2016-05-30 06:34 | PROGRESS NOTE ---
DATE: 05/30/2016 SUBJECTIVE: The patient reports doing okay. He still has abdominal distention. Reviewed notes from the weekend. His abdominal distention has persisted. OBJECTIVE: Vital Signs: Patient's temperature max is 100.4. Temperature current is 98.0. Pulse is mildly tachycardic at 100. Respiratory rate mildly tachypneic at 23. Blood pressure 161/101. O2 saturation 96% on 2 L nasal cannula. General: No acute distress. Resting comfortably in bed. Cardiovascular: Mildly tachycardic. Lungs: Grossly clear. Abdomen: Still distended, but soft. No tenderness elicited on exam. MITRA drain in place with 60 mL recorded out. There appears to be no bile noted in the MITRA bulb at this time. He is still on IV antibiotics. ASSESSMENT AND PLAN: A 51-year-old male status post laparoscopic cholecystectomy for gangrenous cholecystitis. Postoperative state at this time, patient's distention is still persisting. His gallbladder has been removed. This may be related to a postoperative ileus. His MITRA drain still in place without bile output. I would like to keep it in place for now. We will wait for more definitive return of bowel function and keep him on his IV antibiotics for now given the contamination.
[2016-05-30] MEDS: SYNTHROID PO SCH (06:57)
[2016-05-30] MEDS: ZOSYN 2.25 GM/NS 50 ML IV SCH ×3 (06:58→17:13)
[2016-05-30] MEDS: CLINIMIX E 4.25%-5% SOLUTION 1,000 ML IV SCH ×3 (06:59→19:31)
[2016-05-30 08:23] LABS: MANUAL DIFF NEEDED? NO
[2016-05-30 08:31] LABS: BASO% 0.2 % (0.0-0.8); EOS# 0.08 X1000 (0.0-0.7); EOS% 0.6 % (0.0-10.0); HEMOGLOBIN 9.9 g/dL (14.0-18.0); IMM GRAN# 0.08 X1000 (0.0-0.04); IMM GRAN% 0.6 % (0.0-0.5); LYMPH# 1.36 X1000 (1.2-3.4); LYMPH% 10.1 % (20.5-51.1); MCH 32.8 PG (27-31); MCV 99.3 FL (81-99); MONO% 7.5 % (1.7-9.3); MPV 10.9 FL (7.4-10.4); PLT 366 X1000 (130-400); RBC 3.02 XMIL (4.7-6.1)
[2016-05-30] MEDS: ICAR-C PO SCH ×2 (09:15→20:56)
[2016-05-30] MEDS: COZAAR PO SCH (09:16)
[2016-05-30] MEDS: HYDROCHLOROTHIAZIDE PO SCH (09:16)
[2016-05-30] MEDS: PROTONIX IV SCH ×2 (09:16→20:56)
[2016-05-30] MEDS: PATIENT'S OWN MED PO SCH ×2 (09:16→20:57)
[2016-05-30] MEDS: LOFIBRA PO SCH (09:16)
[2016-05-30] MEDS: SODIUM CHLORIDE 0.9% INJ SCH ×2 (09:16→20:56)
[2016-05-30] MEDS: NORVASC PO SCH ×2 (09:16→20:56)
--- NOTE | 2016-05-30 14:25 | PROGRESS NOTE ---
DATE: 05/30/2016 SUBJECTIVE: Patient resting in bed. He has an NG tube. He had 1 liquid green bowel movement today. He is passing flatus. PHYSICAL EXAMINATION: Vital Signs: Temperature 98, pulse rate 100, respiratory rate 23, blood pressure of 160/101, saturating 97% on 2L NC. General Appearance: Moderately built, moderately nourished, lying in bed, in no acute distress. HEENT: Pale conjunctivae. No icterus. NG tube in place. Neck: Supple. Abdomen: Mild protuberance, distention noted. No guarding, no rebound. There is a drain noted in the right upper quadrant draining serosanguineous fluid. Extremities: No cyanosis, clubbing. Neurologic: He is alert, awake, oriented x3. LABS: Hemoglobin and hematocrit are 9.9 and 30, white count of 13.42, platelet count of 366,000. Sodium of 142, potassium 3.9, chloride of 105, bicarb 25, anion gap of 14, BUN of 17, creatinine 0.8, glucose of 121, calcium is 8.4. IMPRESSION AND PLAN: Gangrenous cholecystitis, status post laparoscopic cholecystectomy on 05/27/2016, postoperative day 3. Abdominal distention is improved after the bowel movement. He is passing flatus. He will continue on nutrition in the form of Clinimix 100 mL per hour. Hopefully, surgical team will start him on an oral diet once abdominal distention has improved. We will continue on proton pump inhibitors daily for now for esophagitis. Further recommendation to follow pending hospital course. I discussed the plan with the patient and family and all their questions were answered. [facility]OSPITALAntonio
--- NOTE | 2016-05-30 16:53 | PROGRESS NOTE ---
DATE: 05/30/2016 SUBJECTIVE: Patient reports still feeling some mild abdominal distention. Denies any fever, chills. OBJECTIVE: Vital Signs: Temperature 98.0 degrees, heart rate 100, respiratory rate 23, blood pressure 161/102, O2 saturation 96% 2 L nasal cannula. General Examination: This is a 51-year- old male lying in bed in no acute distress. HEENT: Head is normocephalic, atraumatic. Anicteric sclerae and pale conjunctivae. Mucous membranes moist. Neck: Supple. No JVD noted. No carotid bruits. No lymphadenopathy. No thyromegaly. Cardiovascular: S1, S2 heard. No murmurs, gallops, rubs. Regular rate and rhythm. Respiratory: Clear bilaterally to auscultation. No work of breathing or using accessory muscles. Abdomen: Soft, a little bit distended the same distention in compared with yesterday. NG tube still in place. Extremities: No clubbing, cyanosis or edema. Peripheral pulses present in both legs. Neurological: Patient alert oriented x3. Able to move 4 extremities. Cranial nerves 2-12 grossly normal. LABORATORY DATA: Reviewed. ASSESSMENT AND PLAN: 1. Acute cholecystitis status post laparoscopic cholecystectomy. Patient got surgery and after that he seems like he has developed some ileus. Abdomen still distended but eventually will resolve as per general surgery. At this point will continue following recommendations from them. 2. Escherichia coli sepsis. Patient is on Zosyn day 9. White cell count is mildly elevated but he is not spiking any fever so I think this condition is very well treated. 3. Hypothyroidism stable. Will continue with home dose Synthroid. 4. Hypertension. Patient is on NPO, he is not taking his home medication that is why he is unable to control blood pressure very well. Will restart home medication as soon as we are resuming diet on this patient.
[2016-05-30] MEDS: ZOCOR PO SCH (20:56)
[2016-05-30] MEDS: ZYPREXA ZYDIS PO SCH (21:14)
[2016-05-31] MEDS: ZOSYN 2.25 GM/NS 50 ML IV SCH ×4 (00:01→18:07)
[2016-05-31] MEDS: CLINIMIX E 4.25%-5% SOLUTION 1,000 ML IV SCH ×3 (06:31→18:07)
[2016-05-31] MEDS: SYNTHROID PO SCH (06:38)
--- NOTE | 2016-05-31 08:38 | PROGRESS NOTE ---
DATE: 05/31/2016 SUBJECTIVE: The patient is doing well. Bowel movement recorded. OBJECTIVE: Vital Signs: Patient is currently afebrile. His vital signs have been stable. MITRA drain in place with only 60 mL recorded out. General: No acute distress. Cardiovascular: Regular rate and rhythm. Lungs: Grossly clear. Abdomen: Less distended and soft. Appropriately tender. LABORATORIES: From yesterday reviewed. No labs from this morning. ASSESSMENT AND PLAN: This is a 51-year-old male status post laparoscopic cholecystectomy for gangrenous cholecystitis. Postoperative state. At this time the patient seems to be doing okay. He is still somewhat distended. He has had a bowel movement so we will advance him to a full liquid diet. We will keep his MITRA drain in place but there is no bile tinge to the output at this point. Would keep him on his IV antibiotics given his contamination intra-abdominally.
[2016-05-31] MEDS: COZAAR PO SCH (09:13)
[2016-05-31] MEDS: HYDROCHLOROTHIAZIDE PO SCH (09:13)
[2016-05-31] MEDS: LOFIBRA PO SCH (09:14)
[2016-05-31] MEDS: ICAR-C PO SCH ×2 (09:14→21:47)
[2016-05-31] MEDS: NORVASC PO SCH ×2 (09:14→21:47)
[2016-05-31] MEDS: SODIUM CHLORIDE 0.9% INJ SCH ×2 (09:14→21:47)
[2016-05-31] MEDS: PROTONIX IV SCH ×2 (09:15→21:47)
[2016-05-31 10:32] LABS: MANUAL DIFF NEEDED? NO
[2016-05-31 10:37] LABS: BASO% 0.2 % (0.0-0.8); EOS# 0.06 X1000 (0.0-0.7); EOS% 0.4 % (0.0-10.0); HEMATOCRIT 31.3 % (42.0-52.0); HEMOGLOBIN 10.7 g/dL (14.0-18.0); IMM GRAN% 0.7 % (0.0-0.5); LYMPH# 1.54 X1000 (1.2-3.4); LYMPH% 11.1 % (20.5-51.1); MCH 33.3 PG (27-31); MCHC 34.2 g/dL (33-37); MCV 97.5 FL (81-99); MONO% 7.2 % (1.7-9.3); MPV 10.7 FL (7.4-10.4); NEUT% 80.4 % (42.2-75.2); PLT 472 X1000 (130-400); RBC 3.21 XMIL (4.7-6.1)
[2016-05-31 10:49] LABS: AGAP 18; BUN 19 mg/dL (8-22); CALCIUM 8.4 mg/dL (8.8-10.2); CHLORIDE 102 mmol/L (98-107); COSMO 283; POTASSIUM 3.5 mmol/L (3.5-5.1); SODIUM 140 mmol/L (136-145); TCO2 20 mmol/L (25-35)
[2016-05-31] MEDS: PATIENT'S OWN MED PO SCH ×2 (11:32→21:23)
--- NOTE | 2016-05-31 12:33 | PROGRESS NOTE ---
DATE: 05/31/2016 SUBJECTIVE: Patient is feeling fine. He reports less abdominal pain. No fever or chills. No nausea, vomiting. The patient had bowel movements yesterday and today. OBJECTIVE: Vital Signs: Temperature 98.4 degrees, heart rate 105, respiratory rate 16, blood pressure 159/85, O2 saturation 92% on room air. General Examination: This is a 51-year-old, male, lying in bed, in no acute distress. HEENT: Head is normocephalic, atraumatic. Anicteric sclerae and pale conjunctivae. Mucous membranes moist. Neck: Supple. No JVD noted. No carotid bruits. No lymphadenopathy. No thyromegaly. Cardiovascular: S1, S2 heard. No murmurs, gallops, or rubs. Regular rate and rhythm. Respiratory: Clear bilaterally to auscultation. No work of breathing or using accessory muscles. Abdomen: Soft, a little bit distended but less in comparing with yesterday. NG tube was removed today. Extremities: No clubbing, cyanosis, or edema. Peripheral pulses present in both legs. Neurological: Patient is alert and oriented x3. Moves 4 extremities. LABORATORY DATA: Reviewed. ASSESSMENT AND PLAN: 1. Acute cholecystitis, status post cholecystectomy. 2. Postoperative ileus. 3. E. coli sepsis. 4. Hypothyroidism. 5. Hypertension. PLAN: Patient is improving clinically. Clinically there is less abdominal distention so Surgery has decided to remove the NG tube. Patient had bowel movement yesterday and today. So, she was started on clear liquid diet. We will continue watching this patient closely. White cell count is okay and regarding the E. coli sepsis patient is on Zosyn day number 10, so I think when this patient is cleared by Surgery patient can be discharged safely. In any case, because she has been here in the hospital for 10 days we will consult physical therapy to make sure that she is strong enough to be discharged home. As soon as is cleared by the Surgery the patient can be discharged from the hospital. For hypertension we are going to restart blood pressure pills.
[2016-05-31] MEDS: ZOCOR PO SCH (21:47)
[2016-05-31] MEDS: ZYPREXA ZYDIS PO SCH (21:47)
[2016-06-01] MEDS: ZOSYN 2.25 GM/NS 50 ML IV SCH ×2 (03:39→10:04)
[2016-06-01] MEDS: SYNTHROID PO SCH (06:07)
--- NOTE | 2016-06-01 06:20 | PROGRESS NOTE ---
DATE: 06/01/2016 SUBJECTIVE: Patient doing okay. Tolerating a full liquid diet. OBJECTIVE: Vital Signs: Patient is currently afebrile. His vital signs are stable. General: No acute distress. Alert, interactive. Cardiovascular: Regular rate and rhythm. Lungs: Grossly clear. Abdomen: Soft. Less distended. MITRA drain in place with 50 mL of serosanguineous output noted. ASSESSMENT AND PLAN: A 51-year-old male status post laparoscopic cholecystectomy for gangrenous cholecystitis. Postoperative state. At this time, patient will be advanced to a low-fat diet. I would like to keep his MITRA drain until he follows up with me in the office. There is no bile tinged color to it. At this time, he can be discharged when okay with primary team.
[2016-06-01 07:41] LABS: MANUAL DIFF NEEDED? NO
[2016-06-01 07:45] LABS: BASO% 0.3 % (0.0-0.8); EOS# 0.14 X1000 (0.0-0.7); EOS% 1.3 % (0.0-10.0); HEMATOCRIT 30.9 % (42.0-52.0); HEMOGLOBIN 10.2 g/dL (14.0-18.0); IMM GRAN# 0.09 X1000 (0.0-0.04); IMM GRAN% 0.8 % (0.0-0.5); LYMPH# 1.77 X1000 (1.2-3.4); LYMPH% 16.3 % (20.5-51.1); MCH 32.1 PG (27-31); MCV 97.2 FL (81-99); MONO# 0.89 X1000 (0.11-0.59); MONO% 8.2 % (1.7-9.3); MPV 10.6 FL (7.4-10.4); NEUT% 73.1 % (42.2-75.2); PLT 483 X1000 (130-400); RBC 3.18 XMIL (4.7-6.1)
[2016-06-01 08:07] LABS: AGAP 15; BUN 12 mg/dL (8-22); CALCIUM 8.3 mg/dL (8.8-10.2); CHLORIDE 102 mmol/L (98-107); COSMO 282; POTASSIUM 3.5 mmol/L (3.5-5.1); SODIUM 141 mmol/L (136-145); TCO2 24 mmol/L (25-35)
[2016-06-01] MEDS: PROTONIX IV SCH (10:03)
[2016-06-01] MEDS: ICAR-C PO SCH (10:03)
[2016-06-01] MEDS: NORVASC PO SCH (10:03)
[2016-06-01] MEDS: HYDROCHLOROTHIAZIDE PO SCH (10:03)
[2016-06-01] MEDS: SODIUM CHLORIDE 0.9% INJ SCH (10:03)
[2016-06-01] MEDS: COZAAR PO SCH (10:03)
[2016-06-01] MEDS: PATIENT'S OWN MED PO SCH (10:04)
[2016-06-01] MEDS: LOFIBRA PO SCH (10:04)
--- NOTE | 2016-06-01 11:31 | PROGRESS NOTE ---
DATE: 05/31/2016 SUBJECTIVE: The patient is feeling fine. Tolerating liquids and had a bowel movement. He says that he had his gallbladder taken out a week ago, but it is only a couple of days. OBJECTIVE: Vital signs: Stable. Afebrile. HEENT: No scleral icterus. Neck: Supple. Trachea in the midline. Heart and Lungs: Normal. LABS: No change. IMPRESSION: 51-year-old gentleman status post lap cholecystectomy for gangrenous cholecystitis. Clinically doing well. He should be able to go home soon. We will advance the diet but will let Dr. Chawla continue the antibiotics and advance the diet as he is the main caregiver in this patient.
--- NOTE | 2016-06-01 15:08 | PROGRESS NOTE ---
DATE: 06/01/2016 SUBJECTIVE: Patient resting in bed. He is feeling better. He is tolerating diet well. Denies any new complaints.Vitals: Temperature of 98.5 degrees, pulse rate of 99, respiratory rate 20, blood pressure 142/84, saturating 92% on 3 L nasal cannula. General: Moderately built, moderately nourished, lying in bed, in no acute distress. HEENT: Mild pallor. No icterus. Neck: Supple. Abdomen: Mildly protuberant, soft. He has tenderness on the right upper quadrant drain site. No rebound or guarding. Extremities: No cyanosis, clubbing. Neurologic: Alert, awake, oriented. LABS: Hemoglobin and hematocrit is 10.2 and 30.9, white count 10.83, platelet count of 483,000. Sodium 140, potassium 3.5, chloride of 102, bicarb 24, anion gap of 15, BUN of 12, creatinine 0.8, glucose of 108, calcium 8.3. IMPRESSION AND PLAN: 1. The patient is status post cholecystectomy for gangrenous cholecystitis. He is recovering well. He is tolerating diet well. He will continue to follow with Dr. Chawla for removal of his drain as an outpatient. 2. Postoperative ileus is improving. had BM yesterday. 3. E. coli sepsis currently on antibiotics. 4. Anemia. Continue to watch. We will start him on Iron C and multivitamin once daily. 5. Esophagitis on EGD. He will continue Protonix once daily for 3 months. 6. He is to follow with me in 3 months on discharge to evaluate for a potential outpatient colonoscopy. [facility]ITALAntonio
--- NOTE | 2016-06-01 16:28 | DISCHARGE SUMMARY ---
ADMISSION DATE: 05/21/2016 DISCHARGE DATE: 06/01/2016 CONSULTATIONS: 1. Cm Das M.D., Gastroenterology. 2. Estuardo Chawla M.D., General Surgery. PERTINENT PROCEDURES: 1. Abdominopelvic CT shows bibasilar atelectasis, possibility of duodenitis or peptic ulcer disease cannot be excluded, cholecystitis. 2. Head CT showed no visible acute intracranial abnormality. No hemorrhage or mass effect. 3. HIDA scan was abnormal with no filling of the gallbladder at 32 hours. 4. Small bowel x-ray showed the stomach distended with air similar to prior, duodenal diverticulum, grossly normal examination of the small bowel. 5. EGD performed by Dr. crissy Das. 6. Laparoscopic cholecystectomy performed by Dr. Estuardo Chawla for gangrenous cholecystitis. DISCHARGE DIAGNOSES: 1. Acute gangrenous cholecystitis status post laparoscopic cholecystectomy performed by Dr. Chawla. 2. Postoperative ileus resolved. 3. E. coli sepsis. Patient going home on Augmentin. 4. Hypothyroidism. Continue Synthroid. 5. Hypertension. Continue home medications. HOSPITAL COURSE: Briefly, Mr. Naylor is a 51-year-old, male, presenting to the ED with complaints of several days of right-sided flank pain and abdominal pain. He was seen by his primary care physician, Dr. Josh Geiger, earlier in the week and an ultrasound was done. The patient reports that it revealed possible sludge in the gallbladder. He states that his pain continued to worsen, therefore, he presented to the emergency room. He does carry a past medical history of hyperlipidemia, hypothyroidism, hypertension, peptic ulcer disease and reported schizophrenia. A CT scan in the emergency room revealed duodenitis with some fluid around the duodenum as well as around the gallbladder. On presentation the patient was rather hypertensive at 153/128, heart rate of 153, temperature of 99.2 degrees. Patient's pressure slowly began to drop. He received 2 L fluid boluses. He was in Trendelenburg. Blood pressures were 80/50. He was alert and oriented. He did appear to be septic. He was evaluated by Dr. Chawla in the emergency room. He was moved to the ICU and started on a Levophed drip as well as antibiotics with Zosyn as per GI and General Surgery. He was continued on a sepsis protocol. Patient was made n.p.o. GI felt the patient was a potential for perforation of duodenal ulcer. He was started on PPIs. The patient was managed in the ICU until he was hemodynamically stable until he could undergo a laparoscopic cholecystectomy by Dr. Chawla which he underwent on 05/27/2016. The patient did develop a postop ileus. He did have an NG tube placement. The patient has improved clinically. There is less abdominal distention. Surgery did remove his NG tube. He has been having bowel movements. He was started on a clear liquid diet which he tolerated and advanced to a lower fat diet. In regard to the patient's E. coli sepsis he was continued on Zosyn for 11 days. He was resumed on his home medications. Dr. Chawla would like the patient to keep his MITRA drain until he follows up with him in the clinic and he is appropriate for discharge per him. The patient will be going home on p.o. antibiotics and will follow up with Dr. Chawla as well as Dr. Das in the outpatient setting. VITAL SIGNS AT TIME OF DISCHARGE: Temperature is 98.5 degrees, heart rate 99, respirations 20, blood pressure 143/84, O2 is 96% on room air. DISCHARGE DIET: Low fat, healthy heart. DISCHARGE MEDICATIONS: 1. Aspirin 81 mg p.o. daily. 2. Clonazepam 1 mg p.o. b.i.d. 3. Fenofibrate 160 mg p.o. daily. 4. Losartan potassium 100 mg p.o. daily. 5. Olanzapine OD 10 mg p.o. at bedtime. 6. Prilosec 40 mg p.o. daily. 7. Simvastatin 40 mg p.o. at bedtime. 8. Synthroid 100 mcg p.o. daily. 9. Hydrochlorothiazide 25 mg p.o. daily. 10. [place] 20 mg p.o. b.i.d. 11. Toprol-XL 25 mg p.o. daily. 12. [place] 10/325, 1 each p.o. p.r.n. 13. Ultram 50 mg p.o. q.6 hours p.r.n. 14. Augmentin 875/125, 1 each p.o. t.i.d. 15. Icar-C 1 each p.o. b.i.d. 16. Norvasc 5 mg p.o. b.i.d. FOLLOWUP: 1. The patient will be discharged home. 2. He will follow up with Dr. Lawrence on 06/02/2016 at 10:45. 3. He will also need to follow up with his primary care physician, Josh Geiger, as well as Dr. Das. 4. The patient can return to the ED for any worsening of symptoms. 5. He is to follow a low-fat diet. 6. Follow up with Dr. Chawla in his office for drain removal. DISCHARGE TIME: Greater than 30 minutes. Dictated by JUAN Peralta for Charly Anders MD
[2016-06-01 16:54] VITALS: BP 131/68
[2016-06-02] MEDS ORDERED: CENTRUM SILVER PO SCH (09:00)
--- NOTE | 2016-06-10 17:03 | DISCHARGE SUMMARY ---
ADMISSION DATE: 05/21/2016 DISCHARGE DATE: 06/01/2016 DISCHARGE SUMMARY ADDENDUM: ANSWER: Septic shock.
== END 2016-06-01 18:39 | disposition home or self-care (01) | DRG 853 ==
LOC: ED 10:24 → ICU 14:34 → 3N 05-25 16:27
PROVIDERS: ATTEND Internal Medicine
PROC: 0D9670Z Drainage of Stomach with Drainage Device, Via Natural or Artificial Opening (ICD-10-PCS; 2016-05-22)
PROC: 0DJ08ZZ Inspection of Upper Intestinal Tract, Via Natural or Artificial Opening Endoscopic (ICD-10-PCS; 2016-05-23)
PROC: 3E0336Z Introduction of Nutritional Substance into Peripheral Vein, Percutaneous Approach (ICD-10-PCS; 2016-05-23)
PROC: 0FT44ZZ Resection of Gallbladder, Percutaneous Endoscopic Approach (ICD-10-PCS; principal; 2016-05-27 12:10)
DX: A41.51 Sepsis due to Escherichia coli [E. coli] (principal); R65.21 Severe sepsis with septic shock; N17.9 Acute kidney failure, unspecified; K81.0 Acute cholecystitis; F20.9 Schizophrenia, unspecified; E83.39 Other disorders of phosphorus metabolism; K56.7 Ileus, unspecified; K91.89 Other postprocedural complications and disorders of digestive system; I10 Essential (primary) hypertension; E78.5 Hyperlipidemia, unspecified; E03.9 Hypothyroidism, unspecified; K21.9 Gastro-esophageal reflux disease without esophagitis; D64.9 Anemia, unspecified; K20.8 Other esophagitis; K29.70 Gastritis, unspecified, without bleeding; K57.10 Diverticulosis of small intestine without perforation or abscess without bleeding; E87.6 Hypokalemia; Z87.11 Personal history of peptic ulcer disease; Z79.899 Other long term (current) drug therapy; Z79.82 Long term (current) use of aspirin
CPT/HCPCS: 36569; 51702; 70450; 71010; 74000; 74020; 74176; 74250; 78226; 80048; 80053; 81001; 82150; 82805; 82948; 83605; 83690; 83735; 84100; 85025; 85027; 85610; 87040; 87077; 87186; 88304; 93005; 94761; 96365; 96367; 96368; 96375; A9537; C1751; C9113; J0330; J1100; J1170; J2060; J2270; J2405; J2543; J3010; J3370; J3480; J3486; J7030; J7050; J7120; Q9966; 97116-GP; 99285-25; J2710; S0020; S0164